=== PATIENT | female | born 1940 | race Caucasian/White ===

== ENCOUNTER → 2017-11-01 10:31 | Outpatient (CLI) | payer MEDICARE, SELFPAY ==
--- NOTE | 2017-11-01 10:41 | XR_ITS ---
EXAM: XR lumbar spine min 4V HISTORY: Low back pain ORDERING PHYSICIAN: Williams Hernandez MD PATIENT AGE: 76 years COMPARISON: None FINDINGS: There is mild/moderate anterior wedging of L1. This appears chronic however, there are no previous exams available for comparison. There is grade 2 spondylolisthesis of L5 on S1 with degenerative disc disease at that level this was present on previous CT scan of 11/20/2007 facet arthritic changes are present at L5-S1 with moderate facet hypertrophic change at L4-5 and L5-S1. IMPRESSION: 1. 40% anterior wedging of L1 which may be old but not present on an older CT scan of 11/20/2007 2. Grade 2 nonspondylolytic spondylolisthesis of L5 on S1 with degenerative disc disease and facet arthritic change
--- NOTE | 2017-11-01 10:41 | XR_ITS ---
XR hip LT 2-3V w/pelvis HISTORY: ITS.REASON: LOW BACK AND LT HIP PAIN ORDERING PHYSICIAN: Williams Hernandez MD PATIENT AGE: 76 years COMPARISON: None FINDINGS: No fracture or dislocation is evident. No significant degenerative change. No lytic or blastic change. Unremarkable soft tissues IMPRESSION: Negative hip
== END ==
PROVIDERS: PCP Family Medicine; Visit Provider Family Medicine
DX: M15.0 Primary generalized (osteo)arthritis (principal)
CPT/HCPCS: 72110; 73502

== ENCOUNTER → 2017-12-20 10:03 | Outpatient (CLI) | payer MEDICARE, SELFPAY ==
[2017-12-20 10:33] LABS: Basophils # 0.1 K/mm3 (0-0.2); Basophils % 0.7 % (0.1-2.0); Eosinophils # 0.1 K/mm3 (0.0-0.4); Eosinophils % 1.7 % (0.1-12.0); Hematocrit 47.2 % (37.0-47.0); Hemoglobin 15.6 g/dL (12.2-16.2); Lymphocytes # 2.4 K/mm3 (0.7-4.5); Lymphocytes % 29.1 K/mm3 (10-50); Mean Corpuscular HGB Conc 33.1 g/dL (31.8-35.4); Mean Corpuscular Hemoglobin 31.4 pg (27.0-31.2); Mean Corpuscular Volume 94.9 fl (81-99); Mean Platelet Volume 7.4 fl (7.4-10.4); Monocytes # 0.5 K/mm3 (0.1-1.0); Monocytes % 5.9 % (1.7-9.3); Neutrophils # 5.1 K/mm3 (1.8-7.8); Neutrophils % 62.6 % (37.0-80.0); Platelet Count 333 K/mm3 (142-424); Red Blood Count 4.98 M/mm3 (4.20-5.40); Red Cell Distribution Width 12.9 % (11.5-17.5); White Blood Count 8.2 K/mm3 (4.8-10.8)
[2017-12-20 11:08] LABS: Alanine Aminotransferase 24 U/L (12-78); Albumin Level 3.9 gm/dL (3.4-5.0); Albumin/Globulin Ratio 1.1 (1.1-1.8); Alkaline Phosphatase 88 U/L (46-116); Anion Gap 14.4 mEq/L (5-15); Aspartate Amino Transferase 18 U/L (15-37); Bilirubin,Total 0.4 mg/dL (0.2-1.0); Blood Urea Nitrogen 14 mg/dL (7-18); Calcium 9.4 mg/dL (8.5-10.1); Carbon Dioxide 29 mmol/L (21.0-32.0); Chloride 103 mmol/L (98-107); Chol/HDL Ratio 2.9 (1-3.5); Cholesterol 164 mg/dL (140-200); Estimated Glomerular Filt Rate 97 ml/min (>60); GFR (African American) 117 ML/MIN (>60); Globulin 3.5 gm/dl (1.3-3.2); Glucose 94 mg/dL (74-106); HDL Cholesterol 56 mg/dL (29-89); Iron 125 ug/dl (28-170); LDL Cholesterol 86 mg/dL (0-130); Potassium 4.4 mmoL/L (3.5-5.1); Sodium 142 mmol/L (136-145); T4 (Thyroxine) 12.4 ug/dl (4.7-13.3); Thyroid Stimulating Hormone 0.31 uIU/ml (0.358-3.740); Total Protein,Serum 7.4 gm/dL (6.4-8.2); Triglycerides 109 mg/dL (30-200); VLDL Cholesterol 22 mg/dL (0-40)
== END ==
PROVIDERS: Visit Provider Family Medicine
DX: D64.9 Anemia, unspecified (principal); E03.9 Hypothyroidism, unspecified; E78.5 Hyperlipidemia, unspecified
CPT/HCPCS: 36415; 80053; 80061; 83540; 84436; 84443; 85025

== ENCOUNTER → 2018-04-26 09:39 | Outpatient (CLI) | payer MEDICARE, SELFPAY ==
--- NOTE | 2018-04-26 09:47 | US_ITS ---
US soft tissue head and neck CLINICAL INDICATION: ITS.REASON: LT SIDED NECK MASS ORDERING PHYSICIAN: Samantha Lopez MD PATIENT AGE: 77 years Comparison: None FINDINGS: Patient reports a left-sided neck mass. The parotid and submandibular glands have an unremarkable appearance. Left carotid artery corresponds to the palpable abnormality. Patient has a prior thyroidectomy. IMPRESSION: Palpable abnormality corresponds to left carotid artery
== END ==
PROVIDERS: Family Provider Family Medicine; PCP Family Medicine; Visit Provider Family Medicine
DX: R22.1 Localized swelling, mass and lump, neck (principal)
CPT/HCPCS: 76536

== ENCOUNTER → 2018-05-09 13:52 | Outpatient (CLI) | payer MEDICARE, SELFPAY ==
--- NOTE | 2018-05-09 14:20 | CI_ITS ---
Cerebrovascular Exam Indications: Follow-up carotid 433.10. Left neck mass. IMPRESSIONS 1. The bilateral vertebral arteries are patent with normal antegrade flow. 2. Study suggests 20-49% stenosis involving the right internal carotid artery and the left internal carotid artery. No change from the study of 25-Jun-2016. 3. Left neck mass appears to be prominent L Internal Jugular vein and carotid artery. Carotid duplex study. Complete study and Doppler flow study including spectral analysis, color and eugene scale imaging. Height: Height: 137.2cm. Height: 54in. Weight: Weight: 59kg. Weight: 129.7lb. Body mass index: BMI: 31.3kg/m^2. Body surface area: BSA: 1.53m^2. Location: Vascular laboratory. Patient status: Outpatient. Tables: Arterial flow: + +--------+--------+ Location V sys V ed + +--------+--------+ Right CCA - proximal 90.5cm/s 19.6cm/s + +--------+--------+ Right CCA - distal 88cm/s 19.6cm/s + +--------+--------+ Right ECA 88.6cm/s -------- + +--------+--------+ Right ICA - proximal 51.3cm/s 18.2cm/s + +--------+--------+ Right ICA - mid 86.4cm/s 28.8cm/s + +--------+--------+ Right ICA - distal 98.2cm/s 27.5cm/s + +--------+--------+ Right vertebral 31.9cm/s -------- + +--------+--------+ Left CCA - proximal 79.6cm/s 18.2cm/s + +--------+--------+ Left CCA - distal 91.8cm/s 21.1cm/s + +--------+--------+ Left ECA 111cm/s -------- + +--------+--------+ Left ICA - proximal 74.2cm/s 22cm/s + +--------+--------+ Left ICA - mid 91.1cm/s 24.5cm/s + +--------+--------+ Left ICA - distal 84.7cm/s 29.1cm/s + +--------+--------+ Left vertebral 54.5cm/s -------- + +--------+--------+ Velocity ratios: + + + + + + Right, V sys Right, V ed Left, V sys Left, V ed + + + + + + Max ICA/dist CCA 1.12 1.47 0.99 1.38 + + + + + + (Report amended ) Electronically signed by: Aniceto Lemos [id number]
== END ==
PROVIDERS: PCP Physician Assistant; Visit Provider Physician Assistant
DX: I65.23 Occlusion and stenosis of bilateral carotid arteries (principal)
CPT/HCPCS: 93880

== ENCOUNTER → 2018-08-25 13:52 | Outpatient (CLI) | payer MEDICARE, SELFPAY ==
--- NOTE | 2018-08-25 13:58 | XR_ITS ---
XR chest 2V HISTORY: Cough ITS.REASON: BRONCHTITS ORDERING PHYSICIAN: RADAMES Tracy PATIENT AGE: 77 years COMPARISON: PA and lateral chest 11/21/2007 FINDINGS: The lung miner are well expanded. There is ill-defined pneumonic infiltrate in the anterior segment left upper lobe and there is minimal lingular pneumonic infiltrate present as well. The right lung miner well expanded and clear. Cardiac size is normal and the vascularity is normal. There is a moderately large hiatal hernia noted chest show definite increase in size when compared to the previous chest film 2007. IMPRESSION: Left upper lobe and lingular bronchopneumonia, difficult to definitely exclude pneumonic infiltrate in the right lower lobe due to the rather large hiatal hernia partially obscuring adequate visualization of the right lower lobe.
== END ==
PROVIDERS: PCP Physician Assistant; Visit Provider Physician Assistant
DX: J40 Bronchitis, not specified as acute or chronic (principal)
CPT/HCPCS: 71046

== ENCOUNTER → 2018-09-27 17:40 | Outpatient (CLI) | payer MEDICARE, SELFPAY | PROVIDERS: Visit Provider Obstetrics & Gynecology | DX: N39.0 Urinary tract infection, site not specified (principal) | CPT/HCPCS: 87086; 87088; 87186 ==

== ENCOUNTER → 2018-10-16 14:47 | Outpatient (POV) | payer MEDICARE, SELFPAY | PROVIDERS: Visit Provider Specialist | DX: M79.672 Pain in left foot (principal); M79.671 Pain in right foot | CPT/HCPCS: 95886; 95909 ==

== ENCOUNTER → 2019-01-19 15:48 | Outpatient (CLI) | payer MEDICARE, SELFPAY ==
--- NOTE | 2019-01-19 15:50 | MR_ITS ---
MR lumbar spine wo con HISTORY: PT states low back pain, bilateral leg pain and numbness . ITS.REASON: LOW BACK PAIN ASSOCIATED WITH RADICULOPATHY ORDERING PHYSICIAN: RADAMES Tracy PATIENT AGE: 78 years Comparison: X-RAY 11/01/17. TECHNIQUE: Standard multiplanar multiecho sequences are performed without contrast. 3-D MIP and myelographic images are also rendered and reviewed FINDINGS: The spinal cord ends at the L1-L2 level. There is kyphosis of the thoracic lumbar junction. T11-T12: Degenerative disc disease. T12-L1: Degenerative disc disease with kyphosis and chronic mild wedging of L1 with loss of height anteriorly of 40% L1-L2: Mild concentric bulging disc with minimal foraminal disc protrusion and mild left foraminal narrowing. L2-L3: Unremarkable. L3-L4: Unremarkable. L4-5: Mild concentric bulging disc. There is moderate facet and ligamentum flavum hypertrophy with severe bilateral lateral recess and foraminal narrowing left greater than right with canal stenosis.. There is minimal central disc protrusion L5-S1: There is grade 1-2 spondylolisthesis of L5 on S1 with anterolisthesis of 8 mm with prominent facet hypertrophic changes and severe bilateral foraminal narrowing left greater than right No extruded herniated disc is evident. IMPRESSION: 1. Multilevel lumbar and lower thoracic spondylosis with chronic wedging of L1 and kyphosis of the thoracolumbar junction. The see above for description at each level 2. L4-5: Mild concentric bulging disc. There is moderate facet and ligamentum flavum hypertrophy with severe bilateral lateral recess and foraminal narrowing left greater than right with canal stenosis.. There is minimal central disc protrusion 3. L5-S1: There is grade 1-2 spondylolisthesis of L5 on S1 with anterolisthesis of 8 mm with prominent facet hypertrophic changes and severe bilateral foraminal narrowing left greater than right
== END ==
PROVIDERS: PCP Physician Assistant; Visit Provider Physician Assistant
DX: M54.5 Low back pain (principal)
CPT/HCPCS: 72148; 76376

== ENCOUNTER → 2019-01-23 10:10 | Outpatient (POV) | payer MEDICARE, SELFPAY | PROVIDERS: Visit Provider Dermatology | DX: Z00.00 Encounter for general adult medical examination without abnormal findings (principal) ==

== ENCOUNTER → 2019-02-12 09:28 | Outpatient (POV) | payer MEDICARE, SELFPAY ==
[2019-02-12 09:42] VITALS: BP 139/66; PULSE 91; RESP 18; O2SAT 98; BMI 23.9
--- NOTE | 2019-02-12 13:29 | HMH.PMCON ---
Assessment and Plan (1) Spinal stenosis of lumbar region Current visit: Yes Status: Chronic Category: Medical Code(s): M48.061 - Spinal stenosis, lumbar region without neurogenic claudication (2) Spondylosis Current visit: Yes Status: Chronic Category: Medical Code(s): M47.9 - Spondylosis, unspecified - Assessment and plan all Dx Assessment and Plan for all problems:: The patient is not interested in any injection therapy at this time. She is also not currently interested in any antiinflammatories. She would like to home Physical therapy. She does not drive, is hard of hearing, as well as has difficulty seeing. She feels it would be safer to have physical therapy rather than injections, as she does not think she would have transportation. She is been instructed to follow-up in the office in therapy to see if she is feeling better or if she would like to consider injection therapy. She is been instructed to call the office if she has any concerns prior to her next appointment. Dr. Arrington has reviewed this note and agrees with this plan of care. This note was dictated using voice recognition software and may contain errors or omissions HPI - Data of Consult Patient: new to practice Consult date: 02/12/19 Requesting Physician: Niurka Gutierrez APRN Primary Care Provider: RADAMES Tracy - Consult Narrative Reason for consult: Pain, leg pain History of present illness: Ms. Del Castillo is a 78 year old female referred to us today by her pcp. Patient complains of low back pain radiating to bilateral legs. She rates her pain as 6 out of 10. She says that the pain is worse with standing and with movement. Patient also says that sitting does not really relieve the pain, but lying on her stomach does help with her pain. She says that she has tried the use of heat and ice, as well as a home stretching program. She says that her sisters have done injections in the past, but she is not interested in this modality at this time. She also says she has tried tylenol, but unable does not want to try antiinflammatories at this time. CC: Niurka Gutierrez APRN [facility] History Medical History: Reports:: Asthma, Hyperlipidemia, Hypertension *Have you ever received a pneumonia vaccine?: No *Have you received a flu vaccine this season?: No Other Medical History: Reports: Hypothyroidism Other Surgeries: Yes: Hysterectomy-Total Amputation: No Fractures: No - *Social History Smoking Status: Current every day smoker Tobacco Type: cigarettes # Packs/Day (cigarettes): 1 Alcohol Intake: never Substance Use Type: denies use *Occupational Status:: retired Housing: house *Travel in the last 8 weeks: None - Psychiatric History Expresses thoughts of harming self/others: None Suicide Plan Description: No Plan Family Hx:: Cancer, Diabetes Review of Systems - Allergic/Immunologic Comments: ROS General: no recent weight change, no fever, no sleep disturbances Respiratory: no cough, no shortness of air, no recurring pulmonary infections Cardiovascular/Peripheral Vascular: No chest pain, No palpitations, no edema, no shortness of breath. Gastrointestinal: no incontinence, normal bowel movements reported Genitourinary: no incontinence Musculoskeletal: Back pain Psychiatric: normal mood/ affect, [denies depression], [denies anxiety] Neurological: [denies weakness in extremities], [denies balance issues] Meds Home Medications Medication Instructions Recorded Confirmed Type atorvastatin 40 mg tablet 40 mg PO 90 Days tab 08/10/18 09/27/18 History budesonide-formoterol HFA 160 INHALATION 30 Days #102 g 08/10/18 09/27/18 History mcg-4.5 mcg/actuation aerosol inhaler ferrous gluconate 324 mg (38 mg 324 mg PO 90 Days #90 tab 08/10/18 09/27/18 History iron) tablet hydrochlorothiazide 12.5 mg tablet 12.5 mg PO 90 Days tab 08/10/18 09/27/18 History levothyroxine 75 mcg tablet 75 mcg PO DAILY 30 Days #30
--- NOTE | 2019-02-12 13:48 | P.CONS_ITS ---
Assessment and Plan (1) Spinal stenosis of lumbar region Current visit: Yes Status: Chronic Category: Medical Code(s): M48.061 - Spinal stenosis, lumbar region without neurogenic claudication (2) Spondylosis Current visit: Yes Status: Chronic Category: Medical Code(s): M47.9 - Spondylosis, unspecified - Assessment and plan all Dx Assessment and Plan for all problems:: The patient is not interested in any injection therapy at this time. She is also not currently interested in any antiinflammatories. She would like to home Physical therapy. She does not drive, is hard of hearing, as well as has difficulty seeing. She feels it would be safer to have physical therapy rather than injections, as she does not think she would have transportation. She is been instructed to follow-up in the office in therapy to see if she is feeling better or if she would like to consider injection therapy. She is been instructed to call the office if she has any concerns prior to her next appointment. Dr. Arrington has reviewed this note and agrees with this plan of care. This note was dictated using voice recognition software and may contain errors or omissions HPI - Data of Consult Patient: new to practice Consult date: 02/12/19 Requesting Physician: Niurka Gutierrez APRN Primary Care Provider: RADAMES Tracy - Consult Narrative Reason for consult: Pain, leg pain History of present illness: Ms. Del Castillo is a 78 year old female referred to us today by her pcp. Patient complains of low back pain radiating to bilateral legs. She rates her pain as 6 out of 10. She says that the pain is worse with standing and with movement. Patient also says that sitting does not really relieve the pain, but lying on her stomach does help with her pain. She says that she has tried the use of heat and ice, as well as a home stretching program. She says that her sisters have done injections in the past, but she is not interested in this modality at this time. She also says she has tried tylenol, but unable does not want to try antiinflammatories at this time. CC: Niurka Gutierrez APRN [facility] History Medical History: Reports:: Asthma, Hyperlipidemia, Hypertension *Have you ever received a pneumonia vaccine?: No *Have you received a flu vaccine this season?: No Other Medical History: Reports: Hypothyroidism Other Surgeries: Yes: Hysterectomy-Total Amputation: No Fractures: No - *Social History Smoking Status: Current every day smoker Tobacco Type: cigarettes # Packs/Day (cigarettes): 1 Alcohol Intake: never Substance Use Type: denies use *Occupational Status:: retired Housing: house *Travel in the last 8 weeks: None - Psychiatric History Expresses thoughts of harming self/others: None Suicide Plan Description: No Plan Family Hx:: Cancer, Diabetes Review of Systems - Allergic/Immunologic Comments: ROS General: no recent weight change, no fever, no sleep disturbances Respiratory: no cough, no shortness of air, no recurring pulmonary infections Cardiovascular/Peripheral Vascular: No chest pain, No palpitations, no edema, no shortness of breath. Gastrointestinal: no incontinence, normal bowel movements reported Genitourinary: no incontinence Musculoskeletal: Back pain Psychiatric: normal mood/ affect, [denies depression], [denies anxiety] Neurological: [denies weakness in extremities], [denies balance issues] Meds Home Medications Medication Instructions Recorded Confirme
== END ==
PROVIDERS: PCP Physician Assistant; Visit Provider Clinical Nurse Specialist Family Health
DX: M48.061 Spinal stenosis, lumbar region without neurogenic claudication (principal); M47.9 Spondylosis, unspecified
CPT/HCPCS: 99202

== ENCOUNTER → 2019-03-12 10:12 | Outpatient (POV) | payer MEDICARE, SELFPAY ==
[2019-03-12 10:26] VITALS: BP 148/63; PULSE 78; RESP 18; O2SAT 98; BMI 23.9
--- NOTE | 2019-03-12 10:37 | P.CONS_ITS ---
[facility] Pain Management SOAP Note Subjective:: Patient is a pleasant 78-year-old white female who presents today for follow-up. Patient is being treated for low back pain radiating to bilateral legs. Patient rates her pain a 3 out of 10 today. She was not interested in any type of injective therapy at her last visit, and was referred for some physical therapy. The patient says that she is doing well with therapy and feels like this is been 80% effective for her. Patient also says she has not had to take any type of anti-inflammatories since starting physical therapy. Patient does say that her pain does increase if she stands for long periods of time, but says the pain is tolerable as long as she takes rest periods . Review of Systems General: No recent weight changes, no fever, no sleep disturbances Respiratory: No cough, no shortness of air, no recurring pulmonary infections Cardiovascular/peripheral vascular: No chest pain, no palpitations, no edema, no shortness of breath Gastrointestinal: No new onset incontinence, normal bowel movements reported Genitourinary: No new onset incontinence Musculoskeletal: Back pain, leg pain Psychiatric: Normal mood/affect Neurological: [Denies weakness in extremities], [denies balance issues] Objective:: Physical exam General: Alert and oriented x3, no acute distress, pleasant and cooperative, [on room air] Lungs: Respirations even and unlabored, symmetrical chest expansion Eyes: PERRL Musculoskeletal: Flexion and extension of lumbar spine somewhat guarded secondary to pain, deep tendon reflexes normal, strength in upper and lower extremities [5/5], normal gait noted Neurological: Speech clear, people manager equal, no gross sensory deficit Assessment:: Degenerative disc disease lumbar spine with lumbar radiculopathy Plan:: Patient will continue with physical therapy at this time. We will follow-up with her in 1 month to reassess her symptoms at that time. She is been instructed to call the office if she has any concerns prior to her next appointment. Dr. Arrington has reviewed this note and agrees with this plan of care. This note was dictated using voice recognition software and make contain errors or omissions.
== END ==
PROVIDERS: PCP Family Medicine; Visit Provider Clinical Nurse Specialist Family Health
DX: M51.16 Intervertebral disc disorders with radiculopathy, lumbar region (principal)
CPT/HCPCS: 99212

== ENCOUNTER → 2019-04-09 13:10 | Outpatient (POV) | payer MEDICARE, SELFPAY ==
[2019-04-09 13:33] VITALS: BP 133/54; PULSE 76; RESP 18; O2SAT 98; BMI 23.1
--- NOTE | 2019-04-09 13:58 | HMH.PAINSOAP ---
[facility] Pain Management SOAP Note Subjective:: Patient is a pleasant 78-year-old white female who presents today for follow-up. Patient was not interested in injective therapy previously she wanted to continue with her physical therapy. And though physical therapy has helped she states her pain is still quite significant when she standing and walking. The pain is relieved when she sits down and leans forward. She does have ligamentum flavum hypertrophy noted on her MRI. We discussed a injection and potentially a mild procedure. She rates her pain a 3 out of 10 now when she is sitting and comfortable. ROS General: no recent weight change, no fever, no sleep disturbances Respiratory: no cough, no shortness of air, no recurring pulmonary infections Cardiovascular/Peripheral Vascular: No chest pain, No palpitations, no edema, no shortness of breath. Gastrointestinal: no incontinence, normal bowel movements reported Genitourinary: no incontinence Musculoskeletal: Back pain, leg pain while walking Psychiatric: normal mood/ affect Neurological: Weakness in bilateral lower extremities while walking, [denies balance issues] Objective:: Physical Exam General: Alert and oriented x3, no acute distress, pleasant and cooperative, [on room air] Lungs: Resps E/U, Symmetrical chest expansion, Eyes: PERRL Musculoskeletal: Flexion and extension of lumbar spine somewhat guarded secondary to pain, deep tendon reflexes normal, strength in upper and lower extremities [5/5], antalgic gait noted Neurological: speech clear, supervisor reclamation equal, no gross sensory deficits Assessment:: Degenerative disc disease lumbar spine with lumbar radiculopathy and spinal stenosis with neurogenic claudication. Plan:: We will start with an L4-L5 lumbar epidural steroid injection. We will get an epidurogram during this to help determine if she is a mild candidate. I gave her information in regards to this. I will follow-up with the patient after her injection reassess her symptoms at that time patient's been instructed to call the office if she has any issues prior to her next appointment. She is not on any anticoagulation therapy. She is currently continuing a home stretching program. Dr. Arrington has reviewed this note and agrees with this plan of care. This note was dictated using voice recognition software and may contain errors or omissions Pain Management Hx Components *Have you ever received a pneumonia vaccine?: Yes *Have you received a flu vaccine this season?: Yes - *Social History *Occupational Status:: other *Travel in the last 8 weeks: None
== END ==
PROVIDERS: PCP Family Medicine; Visit Provider Clinical Nurse Specialist Family Health
DX: M51.16 Intervertebral disc disorders with radiculopathy, lumbar region (principal); M48.062 Spinal stenosis, lumbar region with neurogenic claudication
CPT/HCPCS: 99212

== ENCOUNTER → 2020-09-07 08:49 | Outpatient (CLI) | payer MEDICARE, SELFPAY ==
[2020-09-07 10:07] LABS: Alanine Aminotransferase 16 U/L (12-78); Albumin Level 4.4 g/dl (3.5-5.0); Albumin/Globulin Ratio 1.3 (1.1-1.8); Alkaline Phosphatase 82 U/L (38-126); Anion Gap 11.2 mEq/L (5-15); Aspartate Amino Transferase 30 U/L (14-36); Bilirubin,Total 0.6 mg/dl (0.2-1.3); Blood Urea Nitrogen 16 mg/dl (7-17); Calcium 9.7 mg/dl (8.4-10.2); Carbon Dioxide 29 mmol/L (22.0-30.0); Chloride 100 mmol/L (98-107); Estimated Glomerular Filt Rate 81 ml/min (>60); GFR (African American) 98 ML/MIN (>60); Globulin 3.3 g/dL (1.3-3.2); Glucose 100 mg/dl (74-100); Potassium 4.2 mmoL/L (3.5-5.1); Sodium 136 mmol/L (136-145); Total Protein,Serum 7.7 g/dl (6.3-8.2)
== END ==
PROVIDERS: PCP Physician Assistant; Visit Provider Physician Assistant
DX: R73.09 Other abnormal glucose (principal)
CPT/HCPCS: 36415; 80053

== ENCOUNTER → 2021-02-25 12:13 | Outpatient (CLI) | payer MEDICARE, SELFPAY ==
--- NOTE | 2021-02-25 12:24 | XR_ITS ---
PROCEDURE: XR SHOULDER LT MIN 2V CLINICAL INDICATION: LT SHOULDER INJURY Pain COMPARISON: CR XR HUMERUS LT from 02/25/2021 FINDINGS: There are mild osteoarthritic changes at the glenohumeral joint with subacromial stenosis and high-riding humeral head which may indicate rotator cuff tear. Subchondral cystic changes is present at the junction of the greater tuberosity with the humeral head. Nonspecific calcifications are present in the axillary region and subcoracoid area. These could be related to loose bodies No acute fracture or dislocation is evident of the humerus. The mid distal aspect of the humerus has an unremarkable appearance. IMPRESSION: Osteoarthritic change of the glenohumeral joint with subacromial stenosis which may indicate a rotator cuff tear with subchondral cystic changes of the junction of the humeral head and greater tuberosity. Possible loose bodies Dictated by: Aniceto Lemos MD 02/25/2021 14:01 Aniceto Lemos MD in [place] 02/25/2021 14:01
== END ==
PROVIDERS: PCP Physician Assistant; Visit Provider Physician Assistant
DX: S49.92XA Unspecified injury of left shoulder and upper arm, initial encounter (principal)
CPT/HCPCS: 73030; 73060

== ENCOUNTER → 2021-03-09 08:37 | Outpatient (CLI) | payer MEDICARE, SELFPAY ==
--- NOTE | 2021-03-09 08:41 | XR_ITS ---
PROCEDURE: XR DEXA AXIAL SKELETON CLINICAL HISTORY: POST-MENOPAUSAL COMPARISON: No exams were available for comparison FINDINGS: The right hip BMD is 0.699 with a T-score of -2.0. The left hip BMD is 0.713 with a T-score of -1.9. The lumbar spine BMD is 0.885 with a T-score of -1.5. IMPRESSION: This patient is considered osteopenic according to the World Health Organization criteria. Bone density is between 10 and 25 percent below young normal. Fracture risk is moderate. Treatment is advised. Based on these results a follow-up exam is recommended in 2 year. Dictated by: Aniceto Lemos MD 03/10/2021 19:15 Aniceto Lemos MD in [facility] 03/11/2021 08:28
== END ==
PROVIDERS: PCP Physician Assistant; Visit Provider Physician Assistant
DX: Z78.0 Asymptomatic menopausal state (principal)
CPT/HCPCS: 77080

== ENCOUNTER → 2021-10-09 11:15 | Outpatient (CLI) | payer MEDICARE, SELFPAY ==
--- NOTE | 2021-10-09 11:22 | XR_ITS ---
FINAL REPORT CLINICAL HISTORY: . covid testing, cough FINDINGS: The heart size is normal. There is a moderate hiatal hernia. There is mild scarring. There are no pleural effusions. There is no pneumothorax. There are probable loose bodies adjacent to the proximal left humerus. IMPRESSION: No acute cardiopulmonary process Reviewed, Interpreted and Dictated by Viral Hickey III, MD Transcribed by Rafita Ramirez Authenticated by Viral Hickey III, MD on 10/09/2021 12:47:47 PM [facility]
[2021-10-09 11:49] LABS: Adenovirus,PCR Not Detected (NotDetected); Bordetella Pertussis Not Detected (NotDetected); Chlamydophila Pneumoniae, PCR Not Detected (NotDetected); Coronavirus 19, PCR Not Detected (NotDetected); Coronavirus 229E Not Detected (NotDetected); Coronavirus NL63 Not Detected (NotDetected); Coronavirus OC43 Not Detected (NotDetected); Coronovirus HKU1,PCR Not Detected (NotDetected); Human Metapneumovirus Not Detected (NotDetected); Influenza A, PCR Not Detected (NotDetected); Influenza AH1, 2009 Not Detected (NotDetected); Influenza AH1, PCR Not Detected (NotDetected); Influenza AH3,PCR Not Detected (NotDetected); Influenza B, PCR Not Detected (NotDetected); Mycoplasma Pneumoniae, PCR Not Detected (NotDetected); Parainfluenza 1, PCR Not Detected (NotDetected); Parainfluenza 2, PCR Not Detected (NotDetected); Parainfluenza 3, PCR Not Detected (NotDetected); Parainfluenza 4, PCR Not Detected (NotDetected); Respiratory Syncytial Virus Not Detected (NotDetected); Rhinovirus/Enterovirus Not Detected (NotDetected)
[2021-10-09 12:11] LABS: Basophils # 0.1 K/mm3 (0-0.2); Basophils % 0.6 % (0.1-2.0); Eosinophils # 0.1 K/mm3 (0.0-0.4); Eosinophils % 1.3 % (0.1-12.0); Hematocrit 43.6 % (37.0-47.0); Hemoglobin 14.2 g/dL (12.2-16.2); Lymphocytes # 2.5 K/mm3 (0.7-4.5); Lymphocytes % 25.8 % (10-50); Mean Corpuscular HGB Conc 32.5 g/dL (31.8-35.4); Mean Corpuscular Hemoglobin 31.7 pg (27.0-31.2); Mean Corpuscular Volume 97.5 fl (81-99); Mean Platelet Volume 7.9 fl (7.4-10.4); Monocytes # 0.6 K/mm3 (0.1-1.0); Monocytes % 6.7 % (1.7-9.3); Neutrophils # 6.3 K/mm3 (1.8-7.8); Neutrophils % 65.6 % (37.0-80.0); Platelet Count 336 K/mm3 (142-424); Red Blood Count 4.47 M/mm3 (4.20-5.40); Red Cell Distribution Width 13.5 % (11.5-17.5); White Blood Count 9.6 K/mm3 (4.8-10.8)
== END ==
PROVIDERS: PCP Physician Assistant; Visit Provider Physician Assistant
DX: Z20.822 Contact with and (suspected) exposure to COVID-19 (principal)
CPT/HCPCS: 36415; 71045; 85025; 87581; 87632; 87798; C9803; U0003; U0005

== ENCOUNTER 2025-02-08 11:18 | Outpatient (CLI) | payer MEDICARE, SELFPAY ==
--- OUTSIDE RECORDS SUMMARY | 2024-09-13 05:15 | XMS_ITS ---
Author Organization [facility] Address [address] [place] [id number] Care Team Providers Care Contractor Broomcorn Threshing Name Role Phone Ector Chester Primary Care Provider [phone] Marsha Hernandez Unavailable [phone] Toya Johnson Unavailable [phone] Allergies Allergen (clinical drug ingredient) Drug/Non Drug Allergy documented on EMR Reaction Allergy Type Onset Date Status Substance with penicillin structure and antibacterial mechanism of action (substance) Penicillins Unknown Drug Allergy Active Results Component Value Reference Range Notes CBC Venipuncture (in house) Reviewed date:09/14/2024 12:50:20 PM Interpretation: Performing Lab: Notes/Report: wbc 13.8 3.5 - 10 lymph 15.3 15 - 50 mid 5.2 2 - 15 gran 79.5 35 - 80 rbc 5.13 3.5 - 5.5 hgb 15.5 11.5 - 16.5 hct 46.4 35 - 55 mcv 90.4 75 - 100 mch 30.2 25 - 35 mchc 33.4 31 - 38 platlet 387 100 - 400 Glycohemoglobin A1c (in hous e) Reviewed date:09/14/2024 12:50:20 PM Interpretation:5.9% Performing Lab: Notes/Report: 5.9% glycohemoglobin 5.9% 5 - 6.5 % P-Comprehensive Metabolic Pa lito (CMP) Reviewed date:09/14/2024 12:50:20 PM Interpretation:K+ 5.4, Cl 96, creat 0.48 Performing Lab: Notes/Report: Test performed by [facility] [address] [place] [address] , [place] [address] Apolinar Calvillo MD, Quality Controller CLIA: [id number] Sodium 135 135-145 mmol/L Potassium 5.4 3.5-5.3 mmol/L Chloride 96 97-108 mmol/L CO2 27 22-32 mmol/L Glucose 86 65-99 mg/dL BUN 11 8-23 mg/dL Creatinine 0.48 0.50-1.00 mg/dL Calcium 9.7 8.6-10.4 mg/dL eGFR by Creatinine 93 >59 mL/min/1.73m2 Protein 7.4 6.0-8.3 g/dL Albumin 4.4 3.5-5.3 g/dL Alkaline Phosphatase 105 35-121 IU/L ALT (SGPT) 10 <5-47 IU/L AST (SGOT) 16 <5-40 IU/L Bilirubin, Total 0.3 <0.2-1.2 mg/dL A/G Ratio 1.5 1.1-2.5 P-Ferritin Reviewed date:09/14/2024 12:50:20 PM Interpretation:Normal Performing Lab: Notes/Report: Test performed by [facility] [address] [place] [address] , [place] [address] Apolinar Calvillo MD, Quality Controller CLIA: [id number] Ferritin 48.0 13.0-301.0 ng/mL P-T4 Free (thyroxine) Reviewed date:09/14/2024 12:50:20 PM Interpretation:Normal Performing Lab: Notes/Report: Test performed by [facility] [address] [place] [address] , [facility] [place] [place] [address] Apolinar Calvillo MD, Quality Controller CLIA: [id number] Thyroxine Free (free T4) 1.29 0.86-1.76 ng/dL P-Iron Reviewed date:09/14/2024 12:50:20 PM Interpretation:Normal Performing Lab: Notes/Report: Test performed by [facility] [address] [place] [address] , [place] [address] Apolinar Calvillo MD, Quality Controller CLIA: [id number] Iron 82 37-145 ug/dL P-Lipid Panel Reviewed date:09/14/2024 12:50:20 PM Interpretation:trig 150, non-hdl 144 Performing Lab: Notes/Report: Test performed by [facility] [address] [facility] , [address], [place] [address] Apolinar Calvillo MD, Quality Controller CLIA: [id number] Cholesterol 193 <200 mg/dL Triglycerides 150 <150 mg/dL HDL Cholesterol 49 >39 mg/dL Cholesterol / HDL Ratio 3.94 0.00-4.44 Ratio Non-HDL Cholesterol 144 <130 mg/dL LDL Cholesterol (Calculation) 114 <130 mg/dL LDL Cholesterol Levels* Less than 100 mg/dL Optimal 100 to 129 mg/dL Near Optimal/ Above Optimal 130 to 159 mg/dL Borderline High 160 to 189 mg/dL High 190 mg/dL and above Very High * Categories as recommended by the 2004 ATPIII guidelines LDL/HDL Ratio 2.3 <3.3 Ratio LDL Cholesterol Patient History Test Date: 08/03/2023 LDL Results: 96 Units: mg/dL % Change: +10% Test Date: 01/20/2024 LDL Results: 88 Units: mg/dL % Change: -8% Test Date: 09/13/2024 LDL Results: 114 Units: mg/dL % Change: +29% P-TSH Reviewed date:09/14/2024 12:50:20 PM Interpretation:Normal Performing Lab: Notes/Report: Test performed by [facility], [address] , [address], [place] [address] Apolinar Calvillo MD, Quality Controller CLIA: [id number] TSH 0.79 0.43-5.25 mU/L REASON FOR VISIT check up with blood work and Annual Wellness Visit, Needs bone density screening & flu vaccine Medications Medication SIG (Take, Route, Frequency, Duration) Notes Start Date End Date Status Symbicort 160-4.5 MCG/ACT INHALE 2 PUFFS BY MOUTH TWICE DAILY for 90 Active Lipitor 40 MG 1 tab(s) orally once a day for 90 days Active Omeprazole 40 MG TAKE 1 CAPSULE BY MOUTH EVERY DAY for 90 days Active Albuterol Sulfate HFA 108 (90 Base) MCG/ACT 1 puff as needed Inhalation every 4 hrs, prn 07/08/2023 Active Montelukast Sodium 10 MG 1 tab(s) orally once a day for 90 days Active Meloxicam 7.5 MG 1 tablet Orally Once a day for 90 days 09/13/2024 Active Levothyroxine Sodium 75 MCG 1 tab(s) orally once a day for 90 days Active Benzonatate 200 MG 1 capsule Orally Three times a day, prn 07/08/2023 Active ProAir Digihaler 108 (90 Base) MCG/ACT 1-2 puff(s) inhaled 4 times a day as needed Active Cyclobenzaprine HCl 5 MG 1 tablet Orally three times a day as needed 09/21/2023 Active Primidone 50 MG 1/2 tab orally qhs for 90 days Active WALKER WITH WHEELS AND SEAT DIRECTED NEEDED R26.89R53.81 *Please review for potential replacement for e-prescription and drug interaction check* 06/03/2022 Active Flonase Allergy Relief 50 MCG/ACT 1 spray(s) in each nostril once a day for 30 day(s) 08/12/2022 Active Immunizations Vaccine Route Administration Date Status Comme nts Prevnar (PCV20) IM Intramuscular 09/13/2024 Administered Vital Signs Blood pressure systolic 136 mm Hg 09/13/19 25 Blood pressure diastolic 70 mm Hg 025 Height 63 in 09/13/2024 Weight 126.0 lbs 09/13/2024 BMI 22.32 kg/m2 09/13/2024 Encounters Encounter Location Date Provider Diagnosis [facility] [address] [id number] 09/13/2024 Toya Johnson Adult general medica l examination Z00.00 ; Acquired hypothyroidism E03.9 ; Essential hypertension I10 ; Mixed hyperlipidemia E78.2 ; Chronic obstructive pulmonary disease, unspecified COPD type J44.9 ; Iron deficiency E61.1 ; Environmental allergies Z91.09 ; Impaired fasting glucose R73.01 ; Benign essential tremor G25.0 ; Polyarthralgia M25.50 ; Current smoker F17.200 ; Osteopenia M85.80 and BMI 22.0-22.9, adult Z68.22 Assessments Encounter Date Diagnosis (ICD Code) Assessment Notes Treatment Notes Treatment Clinical Notes Section Notes 09/13/2024 Adult general medical examination (ICD-10 - Z00.00) Patient instructed to return to office Annually for Annual Wellness Visits to include annual screenings of Pain assessment, Functional Ability assessment, Cognitive Ability assessment, Fall Risk assessment, Depression screening and Bladder control screening. 09/13/2024 Acquired hypothyroidism (ICD-10 - E03.9) 09/13/2024 Essential hypertension (ICD-10 - I10) 09/13/2024 Mixed hyperlipidemia (ICD-10 - E78.2) 09/13/2024 Chronic obstructive pulmonary disease, unspecified COPD type (ICD-10 - J44.9) 09/13/2024 Iron deficiency (ICD-10 - E61.1) 09/13/2024 Environmental allergies (ICD-10 - Z91.09) 09/13/2024 Impaired fasting glucose (ICD-10 - R73.01) 09/13/2024 Benign essential tremor (ICD-10 - G25.0) 09/13/2024 Polyarthralgia (ICD-10 - M25.50) 09/13/2024 Current smoker (ICD-10 - F17.200) 09/13/2024 Osteopenia (ICD-10 - M85.80) 09/13/2024 BMI 22.0-22.9, adult (ICD-10 - Z68.22) Plan Of Treatment Medication Medication Name Sig Start Date Stop Date Notes Symbicort 160-4.5 MCG/ACT INHALE 2 PUFFS BY MOUTH TWICE DAILY for 90 Lipitor 40 MG 1 tab(s) orally once a day for 90 days Montelukast Sodium 10 MG 1 tab(s) orally once a day for 90 days Meloxicam 7.5 MG 1 tablet Orally Once a day for 90 days 09/13/2024 Levothyroxine Sodium 75 MCG 1 tab(s) ora lly once a day for 90 days Treatment Notes Assessment Notes Adult general medical examination Patien t instructed to return to office Annually for Annual Wellness Visits to include annual screenings of Pain assessment, Functional Ability assessment, Cognitive Ability assessment, Fall Risk assessment, Depression screening and Bladder control screening. Next Appt Details Follow Up: As directed by MD , Reason: Provider Name:Toya juarez, 03/07/2025 09:00:00 AM, [address], [address], [place], [place], [id number], Progress Notes * MICHAEL DEL CASTILLODOB:1940 (84 yo F)Acc No.[id number]:09/13/2024 Annual Wellness Visit Patient: MICHAEL LONGORIA Provider: RADAMES Brito :1940 A ge:83 Y S ex:Female Date:09/13/2024 Address:[address] [place], [place] [id number] Pcp:Chester Barney Subjective: * Chief Complaints: * 1 . check up with blood work and Annual Wellness Visit. 2. Needs bone density screening & flu vaccine. * HPI: H PI: Patient is here today for P atient is here today for a Medicare Annual Wellness Visit. Pt sts she is fasting, and sts she has no new concerns or complaints at this time. * ROS: O PTHALMOLOGY: Negative for d enies vision issues. * Medical History: H ypothyroidism, Hyperlipidemia, Copd, Hyponatremia, Kidney stones, Allergic rhinitis. * Surgical History: h ysterectomy abdominal , Knee surgery . * Hospitalization/Major Diagno stic Procedure: s ee above . * Family History: F ather: 89 yrs, asthma, BPH. M other: 89 yrs, hyperlipidemia, BPH. P aternal Grand Father: alive. P aternal Grand Mother: alive. M aternal Grand Father: alive. Maternal Grand Mother: alive. S iblings: 1brother. 3 brother(s) , 5 sister(s) . 2 son(s) , 1 daughter(s) . . * Social History: C URRENT TOBACCO USE: Yes S moking Status: Patient does smoke, number of cigarettes per day: 10. C affeine: yes, frequency:daily. Exercise: no. Home smoke detector use: yes. New since last visit: none. Occupation: yes. Past smoking status: yes, Smoking status: Patient does smoke, Packs per day: 0, Number Cigarettes per day: 6. Occup. exposure: none. Recreational drug use: no. Alcohol: socially, Type: , Frequency: ,Years: , Determination:. Sexually active: no.. Travel ouside [place]: yes. * Medications: T aking Montelukast Sodium 10 MG Tablet 1 tab(s) orally once a day , Taking Primidone 50 MG Tablet 1/2 tab orally qhs , Taking WALKER WITH WHEELS AND SEAT DIRECTED NEEDED , Notes to Pharmacist: R26.89R53.81 *Please review for potential replacement for e-prescription and drug interaction check*, Taking Flonase Allergy Relief 50 MCG/ACT Suspension 1 spray(s) in each nostril once a day , Taking ProAir Digihaler 108 (90 Base) MCG/ACT Aerosol Powder Breath Activated 1-2 puff(s) inhaled 4 times a day as needed , Taking Cyclobenzaprine HCl 5 MG Tablet 1 tablet Orally three times a day as needed , Taking Levothyroxine Sodium 75 MCG Tablet 1 tab(s) orally once a day , Taking Benzonatate 200 MG Capsule 1 capsule Orally Three times a day, prn , Taking Omeprazole 40 MG Capsule Delayed Release TAKE 1 CAPSULE BY MOUTH EVERY DAY , Taking Albuterol Sulfate HFA 108 (90 Base) MCG/ACT Aerosol Solution 1 puff as needed Inhalation every 4 hrs, prn , Taking Symbicort 160-4.5 MCG/ACT Aerosol INHALE 2 PUFFS BY MOUTH TWICE DAILY , Taking Lipitor 40 MG Tablet 1 tab(s) orally once a day , Medication List reviewed and reconciled with the patient * Allergies: P enicillins. Objective: * Vitals: W t:126.0, Temp:97.7, BP:136/70, Nurse:MARIELA, Ht: 63, BMI:22.32. * Examination: G eneral Examination: General Appearance: N AD. HEENT: u nremarkable. Oral cavity: n o lesions, mucosa moist and WNL, no erythema. Neck: s upple, no lymphadenopathy. Chest: n ormal shape and expansion. Heart: R SR. Lungs: c lear to auscultation. Abdomen: bowel sounds present, soft and nontender, no organomegaly or masses, no guarding or rigidity. Neurologic Exam: I ntact, in a wheelchair, tremor of hands.? Skin: n ormal, no rash. Peripheral pulses: n ormal (2+) bilaterally. Extremities: n o leg edema. * Physical Examination: G ENERAL: Pain Assessment: P ain level: 4, on a scale of 0-10 (with 10 being extreme pain). F unctional Status Assessment: P atient response to question of how often physical health interferes with daily activities: occasionally . Has help from her son with A DLs-including meal preparation, grocery shopping, housework, laundry, taking medications or handling finances. Cognitive Status: alert and oriented. Ambulation Status: Fully ambulatory but needs assistance with transfers on occasion . F all Risk Assessment: I ndependant in ambulation, adequate lighting in home. Patient has NOT fallen but has had trouble walking within the past 12 months. D epression Screening: D enies depressed mood or anxiety. Describes emotional health as: positive/upbeat. B ladder Control Screening: D enies problems. Assessment: * Assessment: 1. A dult general medical examination - Z00.00 (Primary) 2 . A cquired hypothyroidism - E03.9 3 . E ssential hypertension - I10 4 . M ixed hyperlipidemia - E78.2 5 . C hronic obstructive pulmonary disease, unspecified COPD type - J44.9 6 . I mayela deficiency - E61.1 7 . E nvironmental allergies - Z91.09 8 . I mpaired fasting glucose - R73.01 ?9. B enign essential tremor - G25.0 1 0. P olyarthralgia - M25.50 & #160; 1 1. C urrent smoker - F17.200 1 2. O steopenia - M85.80 ? 1 3. B PA 22.0-22.9, adult - Z68.22 Plan: * Treatment: 2. A cquired hypothyroidism Refill Levothyroxine Sodium Tablet, 75 MCG, 1 tab(s), orally, once a day, 90 days, 90, Refills 1.? L AB: P-T4 Free (thyroxine) (Collection Date & Time - 09/13/2024 09:02 AM) N ormal Value Reference Range T hyroxine Free (free T4) 1.29 0.86-1.76 - ng/d L * Toya Johnson 09/14/2024 12 :50:05 PM > see TE ?LAB: P-TSH (Collection Date & Time - 09/13/2024 09:02 AM)?Normal* Value Reference Range T SH 0.79 0.43-5.25 - mU/L * Toya Johnson 09/14/2024 12 :50:05 PM > see TE 3.?Essential hypertension?LAB: P-Comprehensive Metabolic Panel (CMP) (Collection Date & Time - 09/13/2024 09:02 AM)?K+ 5.4, Cl 96, creat 0.48* Value Reference Range A /G Ratio 1.5 1.1-2.5 - * A lbumin 4.4 3.5-5.3 - g/dL * A lkaline Phosphatase 105 35-121 - IU/L * A LT (SGPT) 10 <5-47 - IU/L * A ST (SGOT) 16 <5-40 - IU/L * B ilirubin, Total 0.3 <0.2-1.2 - mg/dL * B UN 11 8-23 - mg/dL * C alcium 9.7 8.6-10.4 - mg/dL * C hloride 96 L 97-108 - mmol/L * C O2 27 22-32 - mmol/L * C reatinine 0.48 L 0.50-1.00 - mg/dL * G lucose 86 65-99 - mg/dL * P otassium 5.4 H 3.5-5.3 - mmol/L * S odium 135 135-145 - mmol/L * P rotein 7.4 6.0-8.3 - g/dL * e GFR by Creatinine 93 >59 - mL/min/1.73m2 * Toya Johnson 09/14/2024 12 :50:05 PM > see TE 4.?Mixed hyperlipidemia? Refill Lipitor Tablet, 40 MG, 1 tab(s), orally, once a day, 90 days, 90 Tablet, Refills 1.?LAB: P-Lipid Panel (Collection Date & Time - 09/13/2024 09:02 AM)?trig 150, non-hdl 144* Value Reference Range C holesterol / HDL Ratio 3.94 0.00-4.44 - Ratio * C holesterol 193 <200 - mg/dL * H DL Cholesterol 49 >39 - mg/dL * L DL Cholesterol (Calculation) 114 <130 - mg/d L * L DL/HDL Ratio 2.3 <3.3 - Ratio * N on-HDL Cholesterol 144 H <130 - mg/dL * T riglycerides 150 H <150 - mg/dL * Toya Johnson 09/14/2024 12 :50:05 PM > see TE 5.?Chronic obstructive pulmonary disease, unspecified COPD type? Refill Symbicort Aerosol, 160-4.5 MCG/ACT, INHALE 2 PUFFS BY MOUTH TWICE DAILY, 90, 30.6 Gram, Refills 2.??6.?Iron deficiency?LAB: P-Ferritin (Collection Date & Time - 09/13/2024 09:02 AM)?Normal* Value Reference Range F erritin 48.0 13.0-301.0 - ng/mL * Toya Johnson 09/14/2024 12 :50:05 PM > see TE ?LAB: P-Iron (Collection Date & Time - 09/13/2024 09:02 AM)?Normal* Value Reference Range Kaia Alegre 37-145 - ug/dL * Toya Johnson 09/14/2024 12 :50:05 PM > see TE ?LAB: CBC Venipuncture (in house) (Collection Date & Time - 09/13/2024)* Value Reference Range w bc 13.8 3.5 - 10 * l ymph 15.3 15 - 50 * m id 5.2 2 - 15 * g ran 79.5 35 - 80 * r bc 5.13 3.5 - 5.5 * h gb 15.5 11.5 - 16.5 * h ct 46.4 35 - 55 * m cv 90.4 75 - 100 * m ch 30.2 25 - 35 * m chc 33.4 31 - 38 * p latlet 387 100 - 400 * Lisette Ferguson 09/13/2024 11:28 :55 AM > AlexTommydevon Johansen 09/14/2024 12:50:05 PM > see TE 7.?Environmental allergies? Refill Montelukast Sodium Tablet, 10 MG, 1 tab(s), orally, once a day, 90 days, 90, Refills 1.??8.?Impaired fasting glucose?LAB: Glycohemoglobin A1c (in house) (Collection Date & Time - 09/13/2024)? 5.9%* Value Reference Range g lycohemoglobin 5.9% 5 - 6.5 % * Lisette Ferguson 09/13/2024 11:27 :45 AM > JimlarisaTommydevon Johansen 09/14/2024 12:50:05 PM > see TE 9.?Polyarthralgia? Start Meloxicam Tablet, 7.5 MG, 1 tablet, Orally, Once a day, 90 days, 90 Tablet, Refills 1.? * Immunizations: Prevnar (PCV20) : 0.5 mL (Route: Intramuscular) given by Lisette Ferguson Jaylan on Right Deltoid (Environmental allergies) * Procedure Codes: G 0439 ANNUAL WELLNESS VST; PPS SUBSQT VST, 14261 VISUAL ACUITY SCREEN, G0444 ANNUAL DEPRESSION SCREENING 15 MIN, 1090F PRES/ABSN URINE INCON ASSESS, 3288F FALL RISK ASSESSMENT DOCD, 1170F FXNL STATUS ASSESSED, 1159F MED LIST DOCD IN RCRD, 1003F LEVEL OF ACTIVITY ASSESS, 59865 CBC WITH AUTO DIFF, 40441 GLYCATED HEMOGLOBIN TEST, Modifiers: QW , 1125F AMNT PAIN NOTED PAIN PRSNT, 3044F HG A1C LEVEL LT 7.0%, 3075F SYST BP GE 130 - 139MM HG, 3078F DIAST BP < 80 MM HG * Preventive Medicine: Counseling: E motional health: P atient encouraged to try connecting with family or friends to boost mood. B ladder control: M ethods of controlling or managing leakage of urine discussed. E xercise: P atient advised to start, increase or maintain level of exercise/physical activity. I njury prevention: F all prevention discussed. Discussed need for cane/walker. Potential trip hazards discussed. Immunizations: P neumococcal r ecommended. I nfluenza r ecommended seasonally. Screening / Special Tests: M ammogram R ecent history:, recommended today, patient declines. C olonoscopy R ecent history:, excluded due to age. B one mineral Density?Recent history:03/09/2021, osteopenia, recommended, patient declines. * Follow Up: A s directed by * Billing Information: * Visit Code: 27664 Office Visit, Est Pt., Level 3. Modifiers: 25 * Procedure Codes: G0439 ANNUAL WELLNESS VST; PPS SUBSQT VST. 95498 VISUAL ACUITY SCREEN. G0444 ANNUAL DEPRESSION SCREENING 15 MIN. 1090F PRES/ABSN URINE INCON ASSESS. 3288F FALL RISK ASSESSMENT DOCD. 1170F FXNL STATUS ASSESSED. 1159F MED LIST DOCD IN RCRD. 1003F LEVEL OF ACTIVITY ASSESS. 93484 CBC WITH AUTO DIFF. 81599 GLYCATED HEMOGLOBIN TEST. Modifiers: QW 1125F AMNT PAIN NOTED PAIN PRSNT. 3044F HG A1C LEVEL LT 7.0%. 3075F SYST BP GE 130 - 139MM HG. 3078F DIAST BP < 80 MM HG. * Electronic signature of RADAMES Canas on 02/08/2025 at 11:21 AM EDT Sign off status: Pending * Provider: RADAMES Brito Date: 0 09/13/2024 Generated for Larry santa/Samantha/Brodyitting on: 0 02/08/2025 11:21 AM EDT History and Physical Notes * HPI (History of Present Illness) Category Sub-Category Detail Notes Category Not es HPI Patient is here today for Patien t is here today for a Medicare Annual Wellness Visit. Pt sts she is fasting, and sts she has no new concerns or complaints at this time Physical Examination Category Sub-Category Detail Notes Section Note s GENERAL Pain Assessment: Pain level: 4, on a scale of 0-10 (with 10 being extreme pain) Functional Status Assessment: Patient response to question of how often physical health interferes with daily activities: occasionally . Has help from her son with ADLs-including meal preparation, grocery shopping, housework, laundry, taking medications or handling finances. Cognitive Status: alert and oriented. Ambulation Status: Fully ambulatory but needs assistance with transfers on occasion Fall Risk Assessment: Independant in amb ulation, adequate lighting in home. Patient has NOT fallen but has had trouble walking within the past 12 months Depression Screening: Denies depressed m ood or anxiety. Describes emotional health as: positive/upbeat Bladder Control Screening: Denies proble ms Examination Category Sub-Category Detail Notes Category Not es General Examination HEENT: unremarkable Heart: RSR Lungs: clear to auscultatio n Abdomen: bowel sounds present , soft and nontender, no organomegaly or masses, no guarding or rigidity Extremities: no leg edema General Appearance: NAD Skin: normal, no rash Neurologic Exam: Intact, in a wheelch air, tremor of hands Neck: supple, no lymphaden opathy Oral cavity: no lesions, mucosa m oist and WNL, no erythema Peripheral pulses: normal (2+) bilatera lly Chest: normal shape and exp ansion
--- OUTSIDE RECORDS SUMMARY | 2025-01-09 07:15 | XMS_ITS ---
Author Organization [facility] Address [address] [facility] [address] [place] [id number] Care Team Providers Care Nursing Care Partner Name Role Phone Chester Barney Primary Care Provider Marsha Hernandez Unavailable [phone] Toya Johnson Unavailable [phone] Allergies Allergen (clinical drug ingredient) Drug/Non Drug Allergy documented on EMR Reaction Allergy Type Onset Date Status Substance with penicillin structure and antibacterial mechanism of action (substance) Penicillins Unknown Drug Allergy Active REASON FOR VISIT lab work,allergies & stomach issues Encounters Encounter Location Date Provider Diagnosis [facility] [address] [facility] [address] [facility] [address] [place] [id number] 01/09/2025 Toya Johnson Plan Of Treatment Next Appt Details Provider Name:Toya Cool y, 03/07/2025 09:00:00 AM, [address], [address], [place], [phone], Progress Notes * MICHAEL DEL CASTILLODOB:1940 (84 yo F)Acc No.[id number]:01/09/2025 Progress Notes Patient: Vinod MICHAEL CASTILLO Provider: RADAMES Brito :1940 A ge:84 Y S ex:Female Date:01/09/2025 Address:[facility] [id number] Pcp:Chester Barney Subjective: * Chief Complaints: * 1 . Lab work,allergies & stomach issues. * ROS: D ERMATOLOGY: no R catie. n o H leobardo. G ASTROENTEROLOGY: no N ausea. n o V omiting. n o D iarrhea.? U ROLOGY: no D ifficulty urinating. n o B lood in urine. * Medical History: H ypothyroidism, Hyperlipidemia, Copd, [...] active: no.. Travel ouside [place]: yes. * Allergies: P enicillins. Objective: * Vitals: Assessment: Plan: * Treatment: * Billing Information: * Visit Code: * Procedure Codes: * Electronic signature of RADAMES Canas on 02/08/2025 at 11:21 AM EDT Sign off status: Pending * Provider: RADAMES Brito Date: 0 01/09/2025 Generated for Larry santa/Samantha/Sofie on: 0 02/08/2025 11:21 AM EDT
--- OUTSIDE RECORDS SUMMARY | 2025-02-08 11:21 | XMS_ITS ---
Author Organization Unknown Medications Date Medication Dosage DosageUnit StartDate StopDate StopReason Active DoseQuantity DoseUnit Dispense DispenseUnit Refills NdcCode DrugCode PharmacyId IsPrescription MappedMedication Srcstatus 12/27 00:00 :00 Benzonatate 200 MG Capsule 07/08/2023 00:00:00 1 30 0 [id number] 3 205 P Unknown Status 12/27 00:00 :00 Lipitor 40 MG Tablet 1 90 Tablet 1 6807 1031 030 P Unknown Status 12/27 00:00 :00 Montelukast Sodium 10 MG Tablet 1 90 1 010698 80 806 P Unknown Status 02/07 00:00 :00 Nystatin 335520 UNIT/GM Cream 05/11/2023 00:00:00 0 60 grams 1 005110 46 915 P Not Taking
--- OUTSIDE RECORDS SUMMARY | 2025-02-08 11:22 | XMS_ITS | Patient Health Record ---
Author Organization [facility] Address [address] [facility] [address] [place] [id number] Care Team Providers Care Car Storer Name Role Phone Chester Barney Primary Care Provider [phone] Marsha Hernandez Unavailable [phone] Toya Johnson Unavailable [phone] Allergies Allergen (clinical drug ingredient) Drug/Non Drug [...] 0.48 Performing Lab: Notes/Report: Test performed by [facility] [address] [facility] , [address], [place] [address] Apolinar Calvillo MD, Lard Bleacher CLIA: [id number] Sodium 135 135-145 mmol/L Potassium 5.4 3.5-5.3 [...] Interpretation:Normal Performing Lab: Notes/Report: Test performed by [facility] [address] [place] [address] , [place] [address] Apolinar Calvillo MD, Lard Bleacher CLIA: [id number] Ferritin 48.0 13.0-301.0 ng/mL P-T4 Free (thyroxine) Reviewed date:09/14/2024 12:50:20 PM Interpretation:Normal Performing Lab: Notes/Report: Test performed by [facility] [address] [place] [address] , [place] [address] Apolinar Calvillo MD, Lard Bleacher CLIA: [id number] Thyroxine Free (free T4) 1.29 0.86-1.76 ng/dL P-Iron Reviewed date:09/14/2024 12:50:20 PM Interpretation:Normal Performing Lab: Notes/Report: Test performed by [facility] [address] [place] [address] , [address], [place] [address] Apolinar Calvillo MD, Lard Bleacher CLIA: [id number] Iron 82 37-145 ug/dL P-Lipid Panel Reviewed date:09/14/2024 12:50:20 PM Interpretation:trig 150, non-hdl 144 Performing Lab: Notes/Report: Test performed by [facility] [address] [place] [address] , [address], [place] [address] Apolinar Calvillo MD, Lard Bleacher CLIA: [id number] Cholesterol 193 <200 mg/dL Triglycerides 150 <150 [...] Interpretation:Normal Performing Lab: Notes/Report: Test performed by [facility] [address] [place] [address] , [address], [place] [address] Apolinar Calvillo MD, Lard Bleacher CLIA: [id number] TSH 0.79 0.43-5.25 mU/L CBC Fingerstick (in house) ( Not yet reviewed by provider) Interpretation: Performing Lab: Notes/Report: wbc 18.1 3.5 - 10 lym 16.1 15 - 50 mid 5.0 2 - 15 gran 78.9 35 - 80 rbc 4.71 3.5 - 5.5 hgb 13.7 11.5 - 16.5 hct 42.1 35 - 55 mcv 89.3 75 - 100 mch 29.1 25 - 35 mchc 32.6 31 - 38 plat 298 100 - 400 CBC Fingerstick (in house) Reviewed date:06/13/2024 02:48:29 PM Interpretation: Performing Lab: Notes/Report: wbc 11.6 3.5 - 10 lym 24.2 15 - 50 mid 6.3 2 - 15 gran 69.5 35 - 80 rbc 5.00 3.5 - 5.5 hgb 15.1 11.5 - 16.5 hct 45.4 35 - 55 mcv 90.8 75 - 100 mch 30.1 25 - 35 mchc 33.2 31 - 38 plat 221 100 - 400 Medications Medication SIG (Take, Route, Frequency, Duration) Notes Start Date End Date Status Benzonatate 200 MG 1 capsule as needed Orally Three times a day, prn 02/08/2025 Active Meloxicam 7.5 MG 1 tablet Orally Once a day for 90 days 09/13/2024 Active Zithromax Z-Jb 250 MG as directed Orally 02/08/2025 Active Levothyroxine Sodium 75 MCG 1 tab(s) orally once a day for 90 days Active Flonase Allergy Relief 50 MCG/ACT 1 spray(s) in each nostril once a day for 30 day(s) 08/12/2022 Active WALKER WITH WHEELS AND SEAT DIRECTED NEEDED R26.89R53.81 *Please review for potential replacement for e-prescription and drug interaction check* 06/03/2022 Active Lipitor 40 MG 1 tab(s) orally once a day for 90 days Active Primidone 50 MG 1/2 tab orally qhs for 90 days Active Benzonatate 200 MG 1 capsule Orally Three times a day, prn 07/08/2023 Active Zithromax Z-Jb 250 MG as directed Orally 09/21/2023 Not-Taking Montelukast Sodium 10 MG 1 tab(s) orally once a day for 90 days Active Albuterol Sulfate HFA 108 (90 Base) MCG/ACT 1 puff as needed Inhalation every 4 hrs, prn 07/08/2023 Active Omeprazole 40 MG TAKE 1 CAPSULE BY MOUTH EVERY DAY for 90 days Active Symbicort 160-4.5 MCG/ACT INHALE 2 PUFFS BY MOUTH TWICE DAILY Active Cyclobenzaprine HCl 5 MG 1 tablet Orally three times a day as needed 09/21/2023 Not-Taking ProAir Digihaler 108 (90 Base) MCG/ACT 1-2 puff(s) inhaled 4 times a day as needed Active Immunizations Vaccine Route Administration Date Status Comme nts COVID 19 Cally Unknown 11/05/2020 Administered Fluzone High Dose (65yr and older) IM Intramuscular 06/10/2017 Administered Fluzone High Dose (65yr and older) IM Intramuscular 07/29/2022 Administered pneumovax IM Intramuscular 06/20/2007 Administered Prevnar (PCV13) IM Intramuscular 02/19/2015 Administered Prevnar (PCV20) IM Intramuscular 09/13/2024 Administered xFlu shot-36 months and older IM Intramuscular 06/20/2007 Administered qZqloaeb-hhutbmldk-ickrkpe e pts. IM Intramuscular 05/31/2011 Administered Problems Problem Type SNOMED Code ICD Code Onset Dates Problem Status W/U Status Risk Notes Problem Gastroesophageal reflux disease (717551769) GERD (gastroesophageal reflux disease) (K21.9) Active confirmed Problem 22092028 Essential hypertension (I10) Active confirmed Problem 51797880 Anxiety (F41.9) Active confirmed Problem Osteopenia (993792814) Osteopenia (M85.80) Active confirmed Problem 798869164 Environmental allergies (Z91.09) Active confirmed Problem 945239016 Impaired fasting glucose (R73.01) Active confirmed Problem 098363862 Primary generalized (osteo)arthritis (M15.0) Active confirmed Problem 509592193 Mixed hyperlipidemia (E78.2) Active confirmed Problem 42622225 Other chronic pa in (G89.29) Active confirmed Problem 470941993 Acquired hypothyroidism (E03.9) Active confirmed Problem Chronic obstructive pulmonary disease, unspecified COPD type (J44.9) Active confirmed Problem 173472974 Benign essential tremor (G25.0) Active confirmed Problem 45876312 Chronic obstructive pulmonary disease (J44.9) Active confirmed Problem 47135765 Chronic bronchitis, unspecified chronic bronchitis type (J42) Active confirmed Problem 04963527 Right maxillary sinusitis (J32.0) Active confirmed Problem 19204350 Current smoker (F17.200) Active confirmed Problem 647187113 Balance problems (R26.89) Active confirmed Problem 592424536584180 Piriformis syndrome, 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) Active confirmed Problem 80043920 Serum potassium elevated (E87.5) Active confirmed Problem 46012660 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) Active confirmed Problem 409057086 Seasonal allergi c rhinitis, unspecified allergic rhinitis trigger (J30.2) Active confirmed Problem 202133290 Gastroesophageal reflux disease, unspecified whether esophagitis present (K21.9) Active confirmed Vital Signs Heart Rate 90 /min 02/08/2025 Blood pressure diastolic 72 mm Hg 02/08/2025 Height 63 in 02/08/2025 Blood pressure systolic 130 mm Hg 02/08/2025 Weight 000 lbs 02/08/2025 BMI 22.32 kg/m2 09/13/2024 Encounters Encounter Location Date Provider Diagnosis [facility] [address] [place], [place] [id number] 06/13/2024 Toya Crowdy Right maxillary sinu sitis J32.0 and Pain in gums K06.8 [facility] [address] [place], [place] [id number] 09/13/2024 Toya Johnson Adult general medica l examination Z00.00 ; Acquired hypothyroidism E03.9 ; Essential hypertension I10 ; Mixed hyperlipidemia E78.2 ; Chronic obstructive pulmonary disease, unspecified COPD type J44.9 ; Iron deficiency E61.1 ; Environmental allergies Z91.09 ; Impaired fasting glucose R73.01 ; Benign essential tremor G25.0 ; Polyarthralgia M25.50 ; Current smoker F17.200 ; Osteopenia M85.80 and BMI 22.0-22.9, adult Z68.22 [facility] [address] [place], [place] [id number] 02/08/2025 Toya Johnson Acquired hypothyroid ism E03.9 ; Essential hypertension I10 ; Mixed hyperlipidemia E78.2 ; Chronic obstructive pulmonary disease, unspecified COPD type J44.9 ; Iron deficiency E61.1 ; Environmental allergies Z91.09 ; Impaired fasting glucose R73.01 ; Benign essential tremor G25.0 ; Polyarthralgia M25.50 ; Current smoker F17.200 ; Osteopenia M85.80 and Bronchitis J40 [facility] [address] [place], [place] [id number] 02/29/2024 Toya Johnson Environmental allerg ies Z91.09 and Essential hypertension I10 [facility] [address] [place], [place] [id number] 04/13/2024 Chester Frenchtown [facility] [address] [place], [place] [id number] 05/01/2024 Chester [place] Acquired hypothyroid ism E03.9 and Bronchitis J40 [facility] [address] [place], [place] [id number] 08/09/2024 Toya Johnson [facility] [address] [place], [place] [id number] 09/04/2024 Chester [place] Environmental allerg ies Z91.09 [facility] [address] [place], [place] [id number] 09/07/2024 Chester [place] [facility] [address] [place] [id number] 09/14/2024 Toya Crowdy Bronchitis J40 [facility] [address] [place], [place] [id number] 09/26/2024 Chester [place] Environmental allerg ies Z91.09 [facility] [address] [place], [place] [id number] 10/10/2024 Chester [place] Bronchitis J40 [facility] [address] [place], [place] [id number] 12/27/2024 Chester [place] Bronchitis J40 ; Mix ed hyperlipidemia E78.2 and Environmental allergies Z91.09 Assessments Encounter Date Diagnosis (ICD Code) Assessment Notes Treatment Notes Treatment Clinical Notes Section Notes 02/29/2024 Environmental allergies (ICD-10 - Z91.09) 05/01/2024 Acquired hypothyroidism (ICD-10 - E03.9) 06/13/2024 Right maxillary sinusitis (ICD-10 - J32.0) Likely the cause of her dizziness. Will start on abx and she will f/u if no better. 06/13/2024 Pain in gums (ICD-10 - K06.8) Patient is going to call the dentist today to schedule an appt. 09/04/2024 Environmental allergies (ICD-10 - Z91.09) 09/13/2024 Acquired hypothyroidism (ICD-10 - E03.9) 09/14/2024 Bronchitis (ICD-10 - J40) 09/26/2024 Environmental allergies (ICD-10 - Z91.09) 10/10/2024 Bronchitis (ICD-10 - J40) 09/13/2024 Adult general medical examination (ICD-10 - Z00.00) Patient instructed to return to office Annually for Annual Wellness Visits to include annual screenings of Pain assessment, Functional Ability assessment, Cognitive Ability assessment, Fall Risk assessment, Depression screening and Bladder control screening. 12/27/2024 Bronchitis (ICD-10 - J40) 02/08/2025 Acquired hypothyroidism (ICD-10 - E03.9) 02/08/2025 Essential hypertension (ICD-10 - I10) 12/27/2024 Mixed hyperlipidemia (ICD-10 - E78.2) 09/13/2024 Essential hypertension (ICD-10 - I10) 05/01/2024 Bronchitis (ICD-10 - J40) 02/29/2024 Essential hypertension (ICD-10 - I10) 09/13/2024 Mixed hyperlipidemia (ICD-10 - E78.2) 12/27/2024 Environmental allergies (ICD-10 - Z91.09) 02/08/2025 Mixed hyperlipidemia (ICD-10 - E78.2) 02/08/2025 Chronic obstructive pulmonary disease, unspecified COPD type (ICD-10 - J44.9) 09/13/2024 Chronic obstructive pulmonary disease, unspecified COPD type (ICD-10 - J44.9) 09/13/2024 Iron deficiency (ICD-10 - E61.1) 02/08/2025 Iron deficiency (ICD-10 - E61.1) 02/08/2025 Environmental allergies (ICD-10 - Z91.09) 09/13/2024 Environmental allergies (ICD-10 - Z91.09) 09/13/2024 Impaired fasting glucose (ICD-10 - R73.01) 02/08/2025 Impaired fasting glucose (ICD-10 - R73.01) 09/13/2024 Benign essential tremor (ICD-10 - G25.0) 02/08/2025 Benign essential tremor (ICD-10 - G25.0) 09/13/2024 Polyarthralgia (ICD-10 - M25.50) 02/08/2025 Polyarthralgia (ICD-10 - M25.50) 02/08/2025 Current smoker (ICD-10 - F17.200) 09/13/2024 Current smoker (ICD-10 - F17.200) 09/13/2024 Osteopenia (ICD-10 - M85.80) 02/08/2025 Osteopenia (ICD-10 - M85.80) 09/13/2024 BMI 22.0-22.9, adult (ICD-10 - Z68.22) 02/08/2025 Bronchitis (ICD-10 - J40) Plan Of Treatment Pending Test Test Name Order Date Bone density 01/27/2023 CXR 02/08/2025 CBC Fingerstick (in house) 02/08/2025 CBC Venipuncture (in house) 02/08/2025 Glycohemoglobin A1c (in house) xLC-Glycohemoglobin (GHb),Total 09/02/19 22 H-CBC 10/09/2021 P-BNP (Brain Natriuretic Peptide) 2023 P-Comprehensive Metabolic Panel (CMP) P-Ferritin 02/08/2025 P-T4 Free (thyroxine) 02/08/2025 P-Iron 02/08/2025 P-Lipid Panel 02/08/2025 P-TSH 02/08/2025 Next Appt Details Provider Name:Toya juarez, 03/07/2025 09:00:00 AM, [address] [facility], [address], [place], [place], [id number], Insurance Providers Payer Name Payer Address Payer Phone Subscriber Number Group Number Insured Name Patient Relationship to Insured Coverage Start Date Coverage End Date [employer] [address] [address] [place], [place] [id number] MICHAEL DEL CASTILLO Self - patient is the insured Medications Administered Medication Instructions Date of Administration Dosage Notes Depo- Medrol 40 mg/ml 10/07/2023 1.5 mL Dexamethasone 12/13/2009 1mL Medical (General) History Medical History History ICD Code Hypothyroidism hyperlipidemia copd hyponatremia kidney stones allergic rhinitis Surgical History Surgery Date(Month/Year) hysterectomy abdominal Knee surgery Hospitalization History Reason Date(Month/Year) see above
--- NOTE | 2025-02-08 11:24 | XR_ITS ---
FINAL REPORT CLINICAL HISTORY: BRONCHITIS COMPARISON: 10/09/2021 FINDINGS: CHEST 2 VIEWS PA AND LATERAL The heart is normal in size. The mediastinum is unremarkable. There is a moderate hiatal hernia. There is new airspace opacity at the left base consistent with pneumonia or aspiration. Small left effusion is identified. The right lung is clear. There is no pneumothorax. IMPRESSION: Findings consistent with left lung pneumonia. Reviewed, Interpreted and Dictated by Teofilo Chavarria MD Transcribed by Diane Yin Authenticated and . [facility]
== END 2025-02-08 23:59 | disposition home or self-care (01) ==
LOC: RAD 11:20
PROVIDERS: PCP Physician Assistant; Visit Provider Physician Assistant
DX: J90 Pleural effusion, not elsewhere classified (principal); J98.4 Other disorders of lung; K44.9 Diaphragmatic hernia without obstruction or gangrene
CPT/HCPCS: 71046

== ENCOUNTER 2025-03-07 10:56 | Outpatient (CLI) | payer MEDICARE, SELFPAY ==
--- OUTSIDE RECORDS SUMMARY | 2025-02-21 06:15 | XMS_ITS ---
Author Organization [facility] Address [address] [place] [id number] Care Team Providers Care Egg Candler Name Role Phone Chester Barney Primary Care Provider [phone] Marsha Hernandez Unavailable [phone] Toya Johnson Unavailable [phone] Allergies Allergen (clinical drug ingredient) Drug/Non Drug Allergy documented on EMR Reaction Allergy Type Onset Date Status Substance with penicillin structure and antibacterial mechanism of action (substance) Penicillins Unknown Drug Allergy Active Results Component Value Reference Range Notes CBC Fingerstick (in house) Reviewed date:02/21/2025 03:21:47 PM Interpretation: Performing Lab: Notes/Report: wbc 14.9 3.5 - 10 lym 17.4% 15 - 50 mid 5.0% 2 - 15 gran 77.6% 35 - 80 rbc 4.67 3.5 - 5.5 hgb 13.5 11.5 - 16.5 hct 41.8 35 - 55 mcv 89.3 75 - 100 mch 28.9 25 - 35 mchc 32.4 31 - 38 plat 308 100 - 400 REASON FOR VISIT 1 week f/u Medications Medication SIG (Take, Route, Frequency, Duration) Notes Start Date End Date Status Cyclobenzaprine HCl 5 MG 1 tablet Orally three times a day as needed 09/21/2023 Not-Taking Benzonatate 200 MG 1 capsule as needed Orally Three times a day, prn 02/08/2025 Active Zithromax Z-Jb 250 MG as directed Orally 09/21/2023 Not-Taking Cefdinir 300 MG as directed Orally Two times a day; Duration: 10 days 02/21/2025 Active Meloxicam 7.5 MG 1 tablet Orally Once a day; Duration: 90 days 09/13/2024 Active Lipitor 40 MG 1 tab(s) orally once a day; Duration: 90 days Active Symbicort 160-4.5 MCG/ACT INHALE 2 PUFFS BY MOUTH TWICE DAILY Active Montelukast Sodium 10 MG 1 tab(s) orally once a day; Duration: 90 days Active ProAir Digihaler 108 (90 Base) MCG/ACT 1-2 puff(s) inhaled 4 times a day as needed Active Flonase Allergy Relief 50 MCG/ACT 1 spray(s) in each nostril once a day; Duration: 30 day(s) 08/12/2022 Active Albuterol Sulfate HFA 108 (90 Base) MCG/ACT 1 puff as needed Inhalation every 4 hrs, prn 07/08/2023 Active Omeprazole 40 MG TAKE 1 CAPSULE BY MOUTH EVERY DAY; Duration: 90 days Active Levothyroxine Sodium 75 MCG 1 tab(s) orally once a day; Duration: 90 days Active WALKER WITH WHEELS AND SEAT DIRECTED NEEDED R26.89R53.81 *Please review for potential replacement for e-prescription and drug interaction check* 06/03/2022 Active Primidone 50 MG 1/2 tab orally qhs; Duration: 90 days Active Vital Signs Weight 117.4 lbs 02/21/2025 Blood pressure systolic 130 mm Hg 02/22/20 25 Blood pressure diastolic 60 mm Hg 025 Heart Rate 65 /min 02/21/2025 Height 63 in 02/21/2025 BMI 20.79 kg/m2 02/21/2025 Encounters Encounter Location Date Provider Diagnosis [facility] [address], [place] [phone] 02/21/2025 Toya Crowdy Pneumonia of left lo wer lobe due to infectious organism J18.9 ; Lymphadenopathy R59.1 and BMI 20.0-20.9, adult Z68.20 Assessments Encounter Date Diagnosis (ICD Code) Assessment Notes Treatment Notes Treatment Clinical Notes Section Notes 02/21/2025 Pneumonia of left lower lobe due to infectious organism (ICD-10 - J18.9) Has finished zithromax and WBC is still elevated. Will add cefdinir and recheck CBC in 1 week. Will also get a sputum culture. 02/21/2025 Lymphadenopathy (ICD-10 - R59.1) Cefdinir should help with this as well 02/21/2025 BMI 20.0-20.9, adult (ICD-10 - Z68.20) Plan Of Treatment Medication Medication Name Sig Start Date Stop Date Notes Cefdinir 300 MG as directed Orally T wo times a day; Duration: 10 days 02/21/2025 Treatment Notes Assessment Notes Pneumonia of left lower lobe due to infectious organism Has finished zithromax and WBC is still elevated. Will add cefdinir and recheck CBC in 1 week. Will also get a sputum culture. Lymphadenopathy Cefdinir should help with this as well Pending Test Test Name Order Date H-Sputum Culture with Gram Stain 025 Next Appt Details Follow Up: 1 Week, Reason: Progress Notes * MICHAEL DEL CASTILLODOB:1940 (84 yo F)Acc No.[id number]:02/21/2025 Patient: Vinod CASTILLOMICHAEL Provider: RADAMES Brito :1940 A ge:84 Y S ex:Female Date:02/21/2025 Address:[facility] [place], [id number] Pcp:Chester Barney Subjective: * Chief Complaints: * 1 . 1 week f/u. * HPI: E NT/respiratory: The pt is here for a follow up on Pneumonia. Pt states she is felling better. Pt states she is still coughing up some greenish yellow sputum but better than is had been. 84 year old female presents with c/o cough g reenish yellow sputum production. Denies : sore throat. D enies : Fever. * ROS: D ERMATOLOGY: no R catie. [...] tab(s) orally once a day , Taking Meloxicam 7.5 MG Tablet 1 tablet Orally Once a day , Taking Lipitor 40 MG Tablet 1 tab(s) orally once a day , Taking Symbicort 160-4.5 MCG/ACT Aerosol INHALE 2 PUFFS BY MOUTH TWICE DAILY , Taking Montelukast Sodium 10 MG Tablet 1 tab(s) orally once a day , Taking Benzonatate 200 MG Capsule 1 capsule as needed Orally Three times a day, prn , Not-Taking Cyclobenzaprine HCl 5 MG Tablet 1 tablet Orally three times a day as needed , Not-Taking Zithromax Z-Jb 250 MG Tablet as directed Orally , Discontinued Benzonatate 200 MG Capsule 1 capsule Orally Three times a day, prn , Discontinued Zithromax Z-Jb 250 MG Tablet as directed Orally , Medication List reviewed and reconciled with the patient * Allergies: P enicillins. Objective: * Vitals: W t: 117.4, Temp: 97.7, BP: 130/60, HR: 65, O2 Sat: 96% on RA, Nurse: TANYA, Ht: 63, BMI:20.79. * Examination: G eneral Examination: General Appearance: N AD. H EENT: u nremarkable.?Oral cavity: n o lesions, mucosa moist and WNL, no erythema. N [place]: s upple, tender cervical lymph nodes on the left side. C hest: n ormal shape and expansion. H eart: R SR. L ungs: r ales in the left base, faint wheezes, better air movement. ? Assessment: * Assessment: 1. P neumonia of left lower lobe due to infectious organism - J18.9 (Primary) 2 . L ymphadenopathy - R59.1 3 . B TN 20.0-20.9, adult - Z68.20 ? Plan: * Treatment: Value Reference Range w bc 14.9 3.5 - 10 * l ym 17.4% 15 - 50 * m id 5.0% 2 - 15 * g ran 77.6% 35 - 80 * r bc 4.67 3.5 - 5.5 * h gb 13.5 11.5 - 16.5 * h ct 41.8 35 - 55 * m cv 89.3 75 - 100 * m ch 28.9 25 - 35 * m chc 32.4 31 - 38 * p lat 308 100 - 400 * Josette Flores 02/21/2025 10 :28:29 AM EDT > Provider reviewed results while patient in office.Toya Johnson 02/21/2025 03:21:44 PM EDT > Notes: Has finished zithromax and WBC is still elevated. Will add cefdinir and recheck CBC in 1 week. Will also get a sputum culture.??2.?Lymphadenopathy? Notes: Cefdinir should help with this as well?? * Procedure Codes: G 2211 Complex e/[place], [address] CAPILLARY BLOOD DRAW, 33868 CBC WITH AUTO DIFF, G8783 BP SCR PRFRM RCMDD DEFIND SCR INTVL, G8752 MOST RECENT SYSTOLIC BP < 140MM HG, G8754 MOST RECENT DIASTOLIC BP < 90MM HG, G8420 BMI<30 AND >=22 CALC & DOCU * Follow Up: 1 Week * Images: Billing Information: * Visit Code: 44393 Office Visit, Est Pt., Level 3. * Procedure Codes: G2211 Complex e/[place]. [address] CAPILLARY BLOOD DRAW. 83323 CBC WITH AUTO DIFF. G8783 BP SCR PRFRM RCMDD DEFIND SCR INTVL. G8752 MOST RECENT SYSTOLIC BP < 140MM HG. G8754 MOST RECENT DIASTOLIC BP < 90MM HG. G8420 BMI<30 AND >=22 CALC & DOCU. * Electronic signature of RADAMES Canas on 03/07/2025 at 11:05 AM EDT Sign off status: Pending * Provider: RADAMES Brito Date: 0 02/21/2025 Generated for Larry santa/Samantha/Sofie on: 03/07/2025 11:05 AM EDT History and Physical Notes * HPI (History of Present Illness) Category Sub-Category Detail Notes Category Not es ENT/respiratory sore throat cough greenish yellow sput um production Fever Examination Category Sub-Category Detail Notes Category Not es General Examination HEENT: unremarkable Heart: RSR Lungs: rales in the left ba se, faint wheezes, better air movement General Appearance: NAD Neck: supple, tender cervi thiago lymph nodes on the left side Oral cavity: no lesions, mucosa m oist and WNL, no erythema Chest: normal shape and exp ansion
--- OUTSIDE RECORDS SUMMARY | 2025-02-28 06:15 | XMS_ITS ---
Author Organization [facility] Address [address] [id number] Care Team Providers Care Automotive [employer] Systems Converter Name Role Phone Chester Barney Primary Care Provider [phone] Marsha Hernandez Unavailable [phone] Toya Johnson Unavailable [phone] Allergies Allergen (clinical drug ingredient) Drug/Non Drug Allergy documented on EMR Reaction Allergy Type Onset Date Status Substance with penicillin structure and antibacterial mechanism of action (substance) Penicillins Unknown Drug Allergy Active Results Component Value Reference Range Notes CBC Venipuncture (in house) Reviewed date:02/28/2025 04:54:43 PM Interpretation: Performing Lab: Notes/Report: wbc 16.6 3.5 - 10 lymph 22.1 15 - 50 mid 5.1 2 - 15 gran 72.8 35 - 80 rbc 4.58 3.5 - 5.5 hgb 13.6 11.5 - 16.5 hct 40.3 35 - 55 mcv 88.0 75 - 100 mch 29.7 25 - 35 mchc 33.8 31 - 38 platlet 161 100 - 400 REASON FOR VISIT 1 week, Due for Bone Density Screening Medications Medication SIG (Take, Route, Frequency, Duration) Notes Start Date End Date Status Lipitor 40 MG 1 tab(s) orally once a day; Duration: 90 days Active Meloxicam 7.5 MG 1 tablet Orally Once a day; Duration: 90 days 09/13/2024 Active Benzonatate 200 MG 1 capsule as needed Orally Three times a day, prn 02/08/2025 Active Montelukast Sodium 10 MG 1 tab(s) orally once a day; Duration: 90 days Active Symbicort 160-4.5 MCG/ACT INHALE 2 PUFFS BY MOUTH TWICE DAILY Active Omeprazole 40 MG TAKE 1 CAPSULE BY MOUTH EVERY DAY; Duration: 90 days Active ProAir Digihaler 108 (90 Base) MCG/ACT 1-2 puff(s) inhaled 4 times a day as needed Active Flonase Allergy Relief 50 MCG/ACT 1 spray(s) in each nostril once a day; Duration: 30 day(s) 08/12/2022 Active Levothyroxine Sodium 75 MCG 1 tab(s) orally once a day; Duration: 90 days Active Albuterol Sulfate HFA 108 (90 Base) MCG/ACT 1 puff as needed Inhalation every 4 hrs, prn 07/08/2023 Active Cefdinir 300 MG as directed Orally Two times a day; Duration: 10 days Active WALKER WITH WHEELS AND SEAT DIRECTED NEEDED R26.89R53.81 *Please review for potential replacement for e-prescription and drug interaction check* 06/03/2022 Active Primidone 50 MG 1/2 tab orally qhs; Duration: 90 days Active Vital Signs Weight 116.8 lbs 02/28/2025 Blood pressure systolic 132 mm Hg 02/29/20 25 Blood pressure diastolic 68 mm Hg 025 Heart Rate 76 /min 02/28/2025 Height 63 in 02/28/2025 BMI 20.69 kg/m2 02/28/2025 Encounters Encounter Location Date Provider Diagnosis [facility] [address] [facility] [address] [place] [address], [place] [id number] 02/28/2025 Toya Crowdy Pneumonia of left lo wer lobe due to infectious organism J18.9 Assessments Encounter Date Diagnosis (ICD Code) Assessment Notes Treatment Notes Treatment Clinical Notes Section Notes 02/28/2025 Pneumonia of left lower lobe due to infectious organism (ICD-10 - J18.9) Lymph node has improved. Lung sounds have improved. WBC is still elevated but she has 5 more days of abx. Will recheck a CBC in 1 week. May need a repeat CXR if still elevated at that time. Plan Of Treatment Medication Medication Name Sig Start Date Stop Date Notes Cefdinir 300 MG as directed Orally T wo times a day; Duration: 10 days Treatment Notes Assessment Notes Pneumonia of left lower lobe due to infectious organism Lymph node has improved. Lung sounds hav e improved. WBC is still elevated but she has 5 more days of abx. Will recheck a CBC in 1 week. May need a repeat CXR if still elevated at that time. Next Appt Details Follow Up: 1 Week, Reason: Progress Notes * MICHAEL DEL CASTILLODOB:1940 (84 yo F)Acc No.[id number]:02/28/2025 Progress Notes Patient: MICHAEL LONGORIA Provider: RADAMES Brito :1940 A ge:84 Y S ex:Female Date:02/28/2025 Address:[address], [id number] Pcp:Chester Barney Subjective: * Chief Complaints: * 1 . 1 week. 2. Due for Bone Density Screening. * HPI: E NT/respiratory: Pt here to f/u on Pneumonia. Pt states she is doing better. Pt states she has no other concerns today. * ROS: D ERMATOLOGY: no R catie. [...] Three times a day, prn , Taking Cefdinir 300 MG Capsule as directed Orally Two times a day , Discontinued Cyclobenzaprine HCl 5 MG Tablet 1 tablet Orally three times a day as needed , Discontinued Zithromax Z-Jb 250 MG Tablet as directed Orally , Medication List reviewed and reconciled with the patient * Allergies: P enicillins. Objective: * Vitals: W t: 116.8, Temp: 97.9, BP: 132/68, HR: 76, O2 Sat: 92% on RA, Nurse: guzman, Ht: 63, BMI:20.69. * Examination: G eneral Examination: General Appearance: N AD. H EENT: u nremarkable.?Oral cavity: n o lesions, mucosa moist and WNL, no erythema. C hest: n ormal shape and expansion. H eart: R SR. L ungs: f aint expiratory wheezes, no rales, better air movement. Assessment: * Assessment: 1. P neumonia of left lower lobe due to infectious organism - J18.9 (Primary) Plan: * Treatment: Value Reference Range w bc 16.6 3.5 - 10 * l ymph 22.1 15 - 50 * m id 5.1 2 - 15 * g ran 72.8 35 - 80 * r bc 4.58 3.5 - 5.5 * h gb 13.6 11.5 - 16.5 * h ct 40.3 35 - 55 * m cv 88.0 75 - 100 * m ch 29.7 25 - 35 * m chc 33.8 31 - 38 * p latlet 161 100 - 400 * Josette Flores L 02/28/2025 11: 04:09 AM EDT > Notes: Lymph node has improved. Lung sounds have improved. WBC is still elevated but she has 5 moredays of abx. Will recheck a CBC in 1 week. May need a repeat CXR if still elevated at that time. ? * Procedure Codes: 8 5025 CBC WITH AUTO DIFF, 11203 VENIPUNCT, ROUTINE* * Follow Up: 1 Week * Images: Billing Information: * Visit Code: 60511 Office Visit, Est Pt., Level 3. * Procedure Codes: 23963 CBC WITH AUTO DIFF. 93974 VENIPUNCT, ROUTINE*. * Electronic signature of RADAMES Canas on 03/07/2025 at 11:05 AM EDT Sign off status: Pending * Provider: RADAMES Brito Date: 02/28/2025 Generated for Larry santa/Samantha/eTransmitting on: 0 03/07/2025 11:05 AM EDT History and Physical Notes * Examination Category Sub-Category Detail Notes Category Not es General Examination HEENT: unremarkable Heart: RSR Lungs: faint expiratory whe ezes, no rales, better air movement General Appearance: NAD Oral cavity: no lesions, mucosa m oist and WNL, no erythema Chest: normal shape and exp ansion
--- NOTE | 2025-03-07 11:04 | XR_ITS ---
FINAL REPORT CLINICAL HISTORY: PNEUMONIA LT-LOWER LOBE DUE TO INFECTIOUS ORGANISM COMPARISON: 01/29/2025 FINDINGS: CHEST 2 VIEWS PA AND LATERAL There is mild cardiomegaly. Moderate lateral hernia is identified. There is scarring at the lung bases. There is blunting of the left costophrenic angle, probably due to pleural scarring. There is no pneumothorax. IMPRESSION: No acute process. Reviewed, Interpreted and Dictated by Teofilo Chavarria MD Transcribed by Diane Yin Authenticated and [facility]
--- OUTSIDE RECORDS SUMMARY | 2025-03-07 11:05 | XMS_ITS | Patient Health Record ---
Author Organization [facility] Address [address] [facility] [address] [place] [id number] Care Team Providers Care Cherry Grower Name Role Phone Chester Barney Primary Care Provider Marsha Hernandez Unavailable [phone] Toya Johnson Unavailable [phone] Allergies Allergen (clinical drug ingredient) Drug/Non Drug [...] 1.1 Performing Lab: Notes/Report: Test performed by [facility] [address] [place] [address] , [place] [address] Apolinar Calvillo MD, Staff Therapist CLIA: [id number] Sodium 130 135-145 mmol/L Potassium 4.8 3.5-5.3 [...] Interpretation:Normal Performing Lab: Notes/Report: Test performed by [facility] [address] [place] [address] , [place] [address] Apolinar Calvillo MD, Staff Therapist CLIA: [id number] Ferritin 109.0 13.0-301.0 ng/mL P-T4 Free (thyroxine) Reviewed date:02/14/2025 02:50:42 PM Interpretation:Normal Performing Lab: Notes/Report: Test performed by [facility] [address] [place] [address] , [place] [address] Apolinar Calvillo MD, Staff Therapist CLIA: [id number] Thyroxine Free (free T4) 1.46 0.86-1.76 ng/dL P-Iron Reviewed date:02/14/2025 02:50:42 PM Interpretation:38 Performing Lab: Notes/Report: Test performed by [facility] [address] [place] [address] , [address], [place] [address] Apolinar Calvillo MD, Staff Therapist CLIA: [id number] Iron 38 37-145 ug/dL P-Lipid Panel Reviewed date:02/14/2025 02:50:42 PM Interpretation:Normal Performing Lab: Notes/Report: Test performed by [facility] [address] [facility] , [address], [place] [address] Aoplinar Calvillo MD, Staff Therapist CLIA: [id number] Cholesterol 149 <200 mg/dL Triglycerides 122 <150 [...] Interpretation:Normal Performing Lab: Notes/Report: Test performed by [facility] [address] [place] [address] , [address], [place] [address] Apolinar Calvillo MD, Staff Therapist CLIA: [id number] TSH 0.58 0.43-5.25 mU/L CXR Reviewed date:02/14/2025 02:50:42 PM Interpretation:Pneumonia Performing Lab: Notes/Report: Pneumonia CBC Fingerstick (in house) Reviewed date:02/21/2025 03:21:47 [...] - 38 plat 308 100 - 400 CBC Fingerstick (in house) ( Not yet reviewed by provider) Interpretation: Performing Lab: Notes/Report: wbc 15.8 3.5 - 10 lym 11.0 15 - 50 mid 4.1 2 - 15 gran 84.9 35 - 80 rbc 4.79 3.5 - 5.5 hgb 14.2 11.5 - 16.5 hct 43.7 35 - 55 mcv 91.2 75 - 100 mch 29.6 25 - 35 mchc 32.4 31 - 38 plat 436 100 - 400 CBC Fingerstick (in house) [...] - 38 plat 221 100 - 400 CBC Venipuncture (in house) Reviewed date:09/14/2024 12:50:20 [...] 0.48 Performing Lab: Notes/Report: Test performed by [facility] [facility] , [address], [place] [address] Apolinar Calvillo MD, Staff Therapist CLIA: [id number] Sodium 135 135-145 mmol/L Potassium 5.4 3.5-5.3 [...] Interpretation:Normal Performing Lab: Notes/Report: Test performed by [facility] [address] , [address], [place] [address] Apolinar Calvillo MD, Staff Therapist CLIA: [id number] Ferritin 48.0 13.0-301.0 ng/mL P-T4 Free (thyroxine) Reviewed date:09/14/2024 12:50:20 PM Interpretation:Normal Performing Lab: Notes/Report: Test performed by [facility] , [facility] [place] [address] Apolinar Calvillo MD, Staff Therapist CLIA: [id number] Thyroxine Free (free T4) 1.29 0.86-1.76 ng/dL P-Iron Reviewed date:09/14/2024 12:50:20 PM Interpretation:Normal Performing Lab: Notes/Report: Test performed by [facility] [address] , [address], [place] [address] Apolinar Calvillo MD, Staff Therapist CLIA: [id number] Iron 82 37-145 ug/dL P-Lipid Panel Reviewed date:09/14/2024 12:50:20 PM Interpretation:trig 150, non-hdl 144 Performing Lab: Notes/Report: Test performed by [facility] [address] , [address], [place] [id number] Apolinar Calvillo MD, Staff Therapist CLIA: [id number] Cholesterol 193 <200 mg/dL Triglycerides 150 <150 [...] Interpretation:Normal Performing Lab: Notes/Report: Test performed by [facility] [address] [facility] [address], [place] [address] Apolinar Calvillo MD, Staff Therapist CLIA: [id number] TSH 0.79 0.43-5.25 mU/L CBC Venipuncture (in house) Reviewed date:02/28/2025 04:54:43 [...] - 38 platlet 161 100 - 400 Medications Medication SIG (Take, Route, Frequency, Duration) Notes Start Date End Date Status Doxycycline Monohydrate 100 MG 1 capsule Orally twice a day; Duration: 10 days 03/07/2025 Active Lipitor 40 MG 1 tab(s) orally once a day; Duration: 90 days Active Symbicort 160-4.5 MCG/ACT INHALE 2 PUFFS BY MOUTH TWICE DAILY Active Levothyroxine Sodium 75 MCG 1 tab(s) orally once a day; Duration: 90 days Active Meloxicam 7.5 MG 1 tablet Orally Once a day; Duration: 90 days 09/13/2024 Active Omeprazole 40 MG TAKE 1 CAPSULE BY MOUTH EVERY DAY; Duration: 90 days Active Albuterol Sulfate HFA 108 (90 Base) MCG/ACT 1 puff as needed Inhalation every 4 hrs, prn 07/08/2023 Active Flonase Allergy Relief 50 MCG/ACT 1 spray(s) in each nostril once a day; Duration: 30 day(s) 08/12/2022 Active ProAir Digihaler 108 (90 Base) MCG/ACT 1-2 puff(s) inhaled 4 times a day as needed Active Cefdinir 300 MG as directed Orally Two times a day; Duration: 10 days Active Montelukast Sodium 10 MG 1 tab(s) orally once a day; Duration: 90 days Active Benzonatate 200 MG 1 capsule as needed Orally Three times a day, prn 02/08/2025 Active Primidone 50 MG 1/2 tab orally qhs; Duration: 90 days Active WALKER WITH WHEELS AND SEAT DIRECTED NEEDED R26.89R53.81 *Please review for potential replacement for e-prescription and drug interaction check* 06/03/2022 Active Immunizations Vaccine Route Administration Date Status Comme nts COVID 19 Cally Unknown 11/05/2020 Administered Fluzone High Dose (65yr and older) IM Intramuscular 06/10/2017 Administered Fluzone High Dose (65yr and older) IM Intramuscular 07/29/2022 Administered pneumovax IM Intramuscular 06/20/2007 Administered Prevnar (PCV13) IM Intramuscular 02/19/2015 Administered Prevnar (PCV20) IM Intramuscular 09/13/2024 Administered xFlu shot-36 months and older IM Intramuscular 06/20/2007 Administered kDxkfvcq-fawemdnjh-asbvnkw e pts. IM Intramuscular 05/31/2011 Administered Problems Problem Type SNOMED Code ICD Code Onset Dates Problem Status W/U Status Risk Notes Problem Gastroesophageal reflux disease (657660725) GERD (gastroesophageal reflux disease) (K21.9) Active confirmed Problem Essential hypertension (33230277) Essential hypertension (I10) Active confirmed Problem Anxiety (65963511) Anxiety (F41.9) Active confi rmed Problem Osteopenia (225749116) Osteopenia (M85.80) Active confirmed Problem Environmental allergy (156026116) Environmental allergies (Z91.09) Active confirmed Problem Impaired fasting glucose (739105409) Impaired fasting glucose (R73.01) Active confirmed Problem 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) Active confirmed Problem Mixed hyperlipidemia (060383673) Mixed hyperlipidemia (E78.2) Active confirmed Problem Chronic pain (76678957) Other chronic pain (G89.29) Active confirmed Problem Acquired hypothyroidism (564924964) Acquired hypothyroidism (E03.9) Active confirmed Problem COPD - Chronic obstructive pulmonary disease (76542298) Chronic obstructive pulmonary disease, unspecified COPD type (J44.9) Active confirmed Problem Essential tremor (969126846) Benign essential tremor (G25.0) Active confirmed Problem Chronic obstructive pulmonary disease (67918046) Chronic obstructive pulmonary disease (J44.9) Active confirmed Problem Chronic bronchitis (66639389) Chronic bronchitis, unspecified chronic bronchitis type (J42) Active confirmed Problem Chronic maxillary sinusitis (67301677) Right maxillary sinusitis (J32.0) Active confirmed Problem Current smoker (44801284) Current smoker (F17.200) Active confirmed Problem Problem with balance (213584625) Balance problems (R26.89) Active confirmed Problem Sciatic nerve lesion (463339665) Piriformis syndrome, 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) Active confirmed Problem Hyperkalemia (93265689) Serum potassium elevated (E87.5) Active confirmed Problem Occlusion and stenosis of multiple and bilateral cerebral arteries (819585012) Bilateral carotid artery stenosis (I65.23) Active confirmed Problem Seasonal allergic rhinitis (360354241) Seasonal allergic rhinitis, unspecified allergic rhinitis trigger (J30.2) Active confirmed Problem Gastroesophageal reflux disease (347638225) Gastroesophageal reflux disease, unspecified whether esophagitis present (K21.9) Active confirmed Vital Signs Heart Rate 62 /min 03/07/2025 Blood pressure diastolic 60 mm Hg 03/07/2025 Height 63 in 03/07/2025 Blood pressure systolic 132 mm Hg 03/07/2025 Weight 115 lbs 03/07/2025 BMI 20.37 kg/m2 03/07/2025 Encounters Encounter Location Date Provider [facility] [address] [id number] 06/13/2024 Toya Johnson Right maxillary sinu sitis J32.0 and Pain in gums K06.8 [facility] [address] [place] [facility] [address] [id number] 09/13/2024 Toya Johnson Adult general medica l examination Z00.00 ; Acquired hypothyroidism E03.9 ; Essential hypertension I10 ; Mixed hyperlipidemia E78.2 ; Chronic obstructive pulmonary disease, unspecified COPD type J44.9 ; Iron deficiency E61.1 ; Environmental allergies Z91.09 ; Impaired fasting glucose R73.01 ; Benign essential tremor G25.0 ; Polyarthralgia M25.50 ; Current smoker F17.200 ; Osteopenia M85.80 and BMI 22.0-22.9, adult Z68.22 [facility] [address] [facility] [address] [id number] 02/08/2025 Toya Johnson Acquired hypothyroid ism E03.9 [...] M79.10 ; Polyarthralgia M25.50 and Osteopenia M85.80 [facility] [address] [place], [place] [id number] 02/21/2025 Toya Crowdy Pneumonia of left lo wer lobe due to infectious organism J18.9 ; Lymphadenopathy R59.1 and BMI 20.0-20.9, adult Z68.20 [facility] [address] [place], [place] [id number] 02/28/2025 Toya Crowdy Pneumonia of left lo wer lobe due to infectious organism J18.9 [facility] [address] [place], [place] [id number] 03/07/2025 Toya Crowdy Pneumonia of left lo wer lobe due to infectious organism J18.9 [facility] [address] [place], [place] [id number] 04/13/2024 Chester Henrietta [facility] [address] [place], [place] [id number] 05/01/2024 Chester Henrietta Acquired hypothyroid ism E03.9 and Bronchitis J40 [facility] [address] [place], [place] [id number] 08/09/2024 Toya Crowdy [facility] [address] [place], [place] [id number] 09/04/2024 Chesetr Henrietta Environmental allerg ies Z91.09 [facility] [address] [place], [place] [id number] 09/07/2024 Chester Henrietta [facility] [address] [place], [place] [id number] 09/14/2024 Toya Crowdy Bronchitis J40 [facility] [address] [place], [place] [id number] 09/26/2024 Chester Henrietta Environmental allerg ies Z91.09 [facility] [address] [place], [place] [id number] 10/10/2024 Chester Henrietta Bronchitis J40 [facility] [address] [place], [place] [id number] 12/27/2024 Chester Henrietta Bronchitis J40 ; Mix ed hyperlipidemia E78.2 and Environmental allergies Z91.09 [facility] [address] [place], [place] [id number] 02/12/2025 Chester Henrietta [facility] [address] [place], [place] [id number] 02/14/2025 Toya Johnson Assessments Encounter Date Diagnosis (ICD Code) Assessment Notes Treatment Notes Treatment Clinical Notes Section Notes 05/01/2024 Acquired hypothyroidism (ICD-10 - E03.9) 06/13/2024 [...] screening. 12/27/2024 Bronchitis (ICD-10 - J40) 02/08/2025 Essential hypertension (ICD-10 - I10) 02/08/2025 Acquired hypothyroidism (ICD-10 - E03.9) 02/21/2025 Lymphadenopathy (ICD-10 - R59.1) Cefdinir should help with this as well 02/21/2025 Pneumonia of left lower lobe due to infectious organism (ICD-10 - J18.9) Has finished zithromax and WBC is still elevated. Will add cefdinir and recheck CBC in 1 week. Will also get a sputum culture. 02/28/2025 Pneumonia of left lower lobe due to infectious organism (ICD-10 - J18.9) Lymph node has improved. Lung sounds have improved. WBC is still elevated but she has 5 more days of abx. Will recheck a CBC in 1 week. May need a repeat CXR if still elevated at that time. 03/07/2025 Pneumonia of left lower lobe due to infectious organism (ICD-10 - J18.9) Lymph node has improved. Lung sounds have improved. WBC is still elevated but she has 5 more days of abx. Will recheck a CBC in 1 week. May need a repeat CXR if still elevated at that time. 02/21/2025 BMI 20.0-20.9, adult (ICD-10 - Z68.20) 02/08/2025 Mixed hyperlipidemia (ICD-10 - E78.2) 12/27/2024 Mixed hyperlipidemia (ICD-10 - E78.2) 09/13/2024 Essential hypertension (ICD-10 - I10) 05/01/2024 Bronchitis (ICD-10 - J40) 09/13/2024 Mixed hyperlipidemia (ICD-10 - E78.2) 12/27/2024 Environmental allergies (ICD-10 - Z91.09) 02/08/2025 Chronic obstructive pulmonary disease, unspecified COPD type (ICD-10 - J44.9) 02/08/2025 Iron deficiency (ICD-10 - E61.1) 09/13/2024 Chronic obstructive pulmonary disease, unspecified COPD type (ICD-10 - J44.9) 09/13/2024 Iron deficiency (ICD-10 - E61.1) 02/08/2025 Environmental allergies (ICD-10 - Z91.09) 02/08/2025 Impaired fasting glucose (ICD-10 - R73.01) 09/13/2024 Environmental allergies (ICD-10 - Z91.09) 09/13/2024 Impaired fasting glucose (ICD-10 - R73.01) 02/08/2025 Benign essential tremor (ICD-10 - G25.0) 02/08/2025 Current smoker (ICD-10 - F17.200) 09/13/2024 Benign essential tremor (ICD-10 - G25.0) 09/13/2024 Polyarthralgia (ICD-10 - M25.50) 02/08/2025 Bronchitis (ICD-10 - J40) 02/08/2025 Lumbar back pain (ICD-10 - M54.50) 09/13/2024 Current smoker (ICD-10 - F17.200) 09/13/2024 Osteopenia (ICD-10 - M85.80) 02/08/2025 Myalgia, unspecified site (ICD-10 - M79.10) 02/08/2025 Polyarthralgia (ICD-10 - M25.50) 09/13/2024 BMI 22.0-22.9, adult (ICD-10 - Z68.22) 02/08/2025 Osteopenia (ICD-10 - M85.80) Plan Of Treatment Pending Test Test Name Order Date Bone density 01/27/2023 CXR 03/07/2025 CBC Fingerstick (in house) 03/07/2025 xLC-Glycohemoglobin (GHb),Total 09/02/19 22 H-CBC 10/09/2021 H-Sputum Culture with Gram Stain 025 P-BNP (Brain Natriuretic Peptide) 2023 Insurance Providers Payer Name Payer Address Payer Phone Subscriber Number Group Number Insured Name Patient Relationship to Insured Coverage Start Date Coverage End Date [employer] [address] [address] [place], [place] [id number] MICHAEL DEL CASTILLO Self - patient is [...]
== END 2025-03-07 23:59 | disposition home or self-care (01) ==
LOC: RAD 11:01
PROVIDERS: PCP Physician Assistant; Visit Provider Physician Assistant
DX: J18.9 Pneumonia, unspecified organism (principal)
CPT/HCPCS: 71046

== ENCOUNTER 2025-05-13 09:06 | Outpatient (CLI) | payer MEDICARE, SELFPAY ==
--- OUTSIDE RECORDS SUMMARY | 2025-02-08 06:15 | XMS_ITS ---
Author Organization [facility] Address [address] [place] [id number] Care Team Providers Care Web Master Name Role Phone Ector Chester Primary Care Provider Marsha Hernandez Unavailable [phone] Toya Johnson Unavailable [phone] Allergies Allergen (clinical drug ingredient) Drug/Non Drug Allergy documented on EMR Reaction Allergy Type Onset Date Status Substance with penicillin structure and antibacterial mechanism of action (substance) Penicillins Unknown Drug Allergy Active Results Component Value Reference Range Notes CBC Fingerstick (in house) Reviewed date:02/10/2025 11:22:55 PM Interpretation: Performing Lab: Notes/Report: wbc 18.1 3.5 - 10 lym 16.1 15 - 50 mid 5.0 2 - 15 gran 78.9 35 - 80 rbc 4.71 3.5 - 5.5 hgb 13.7 11.5 - 16.5 hct 42.1 35 - 55 mcv 89.3 75 - 100 mch 29.1 25 - 35 mchc 32.6 31 - 38 plat 298 100 - 400 Glycohemoglobin A1c (in hous e) Reviewed date:02/14/2025 02:50:42 PM Interpretation:6.0% Performing Lab: Notes/Report: 6.0% glycohemoglobin 6.0% 5 - 6.5 % P-Comprehensive Metabolic Pa lito (CMP) Reviewed date:02/14/2025 02:50:42 PM Interpretation:Na 130, Chlor 92, Glu 101, Alk Phos 144, A/G 1.1 Performing Lab: Notes/Report: Test performed by [facility], [facility] [address] [place] [address] , [place] [address] Apolinar Calvillo MD, Facilities Mechanical Design Engineer CLIA: [id number] Sodium 130 135-145 mmol/L Potassium 4.8 3.5-5.3 mmol/L Chloride 92 97-108 mmol/L CO2 25 22-32 mmol/L Glucose 101 65-99 mg/dL BUN 8 8-23 mg/dL Creatinine 0.53 0.50-1.00 mg/dL Calcium 9.8 8.6-10.4 mg/dL eGFR by Creatinine 91 >59 mL/min/1.73m2 Protein 7.7 6.0-8.3 g/dL Albumin 4.0 3.5-5.3 g/dL Alkaline Phosphatase 144 35-121 IU/L ALT (SGPT) 7 <5-47 IU/L AST (SGOT) 15 <5-40 IU/L Bilirubin, Total 0.3 <0.2-1.2 mg/dL A/G Ratio 1.1 1.1-2.5 P-Ferritin Reviewed date:02/14/2025 02:50:42 PM Interpretation:Normal Performing Lab: Notes/Report: Test performed by [facility] [address] [place] [address] , [place] [address] Apolinar Calvillo MD, Facilities Mechanical Design Engineer CLIA: [id number] Ferritin 109.0 13.0-301.0 ng/mL P-T4 Free (thyroxine) Reviewed date:02/14/2025 02:50:42 PM Interpretation:Normal Performing Lab: Notes/Report: Test performed by [facility] [address] [place] [address] , [facility] [place] [address] Apolinar Calvillo MD, Facilities Mechanical Design Engineer CLIA: [id number] Thyroxine Free (free T4) 1.46 0.86-1.76 ng/dL P-Iron Reviewed date:02/14/2025 02:50:42 PM Interpretation:38 Performing Lab: Notes/Report: Test performed by [facility] [address] [place] [address] , [facility] [place] [id number] Apolinar Calvillo MD, Facilities Mechanical Design Engineer CLIA: [id number] Iron 38 37-145 ug/dL P-Lipid Panel Reviewed date:02/14/2025 02:50:42 PM Interpretation:Normal Performing Lab: Notes/Report: Test performed by [facility] [address] [facility] , [address], [place] [address] Apolinar Calvillo MD, Facilities Mechanical Design Engineer CLIA: [id number] Cholesterol 149 <200 mg/dL Triglycerides 122 <150 mg/dL HDL Cholesterol 41 >39 mg/dL Cholesterol / HDL Ratio 3.63 0.00-4.44 Ratio Non-HDL Cholesterol 108 <130 mg/dL LDL Cholesterol (Calculation) 84 <130 mg/dL LDL Cholesterol Levels* Less than 100 mg/dL Optimal 100 to 129 mg/dL Near Optimal/ Above Optimal 130 to 159 mg/dL Borderline High 160 to 189 mg/dL High 190 mg/dL and above Very High * Categories as recommended by the 2004 ATPIII guidelines LDL/HDL Ratio 2.0 <3.3 Ratio LDL Cholesterol Patient History Test Date: 01/20/2024 LDL Results: 88 Units: mg/dL % Change: -8% Test Date: 09/13/2024 LDL Results: 114 Units: mg/dL % Change: +29% Test Date: 02/08/2025 LDL Results: 84 Units: mg/dL % Change: -26% P-TSH Reviewed date:02/14/2025 02:50:42 PM Interpretation:Normal Performing Lab: Notes/Report: Test performed by [facility], [address] , [address], [place] [address] Apolinar Calvillo MD, Facilities Mechanical Design Engineer CLIA: [id number] TSH 0.58 0.43-5.25 mU/L CXR Reviewed date:02/14/2025 02:50:42 PM Interpretation:Pneumonia Performing Lab: Notes/Report: Pneumonia REASON FOR VISIT bloodwork med check, congestion Medications Medication SIG (Take, Route, Frequency, Duration) Notes Start Date End Date Status Meloxicam 7.5 MG 1 tablet Orally Once a day; Duration: 90 days 09/13/2024 Active Levothyroxine Sodium 75 MCG 1 tab(s) orally once a day; Duration: 90 days Active Lipitor 40 MG 1 tab(s) orally once a day; Duration: 90 days Active Benzonatate 200 MG 1 capsule Orally Three times a day, prn 07/08/2023 Active Zithromax Z-Jb 250 MG as directed Orally 09/21/2023 Not-Taking Zithromax Z-Jb 250 MG as directed Orally 02/08/2025 Active Montelukast Sodium 10 MG 1 tab(s) orally once a day; Duration: 90 days Active Albuterol Sulfate HFA 108 (90 Base) MCG/ACT 1 puff as needed Inhalation every 4 hrs, prn 07/08/2023 Active Omeprazole 40 MG TAKE 1 CAPSULE BY MOUTH EVERY DAY; Duration: 90 days Active Cyclobenzaprine HCl 5 MG 1 tablet Orally three times a day as needed 09/21/2023 Not-Taking Flonase Allergy Relief 50 MCG/ACT 1 spray(s) in each nostril once a day; Duration: 30 day(s) 08/12/2022 Active WALKER WITH WHEELS AND SEAT DIRECTED NEEDED R26.89R53.81 *Please review for potential replacement for e-prescription and drug interaction check* 06/03/2022 Active Primidone 50 MG 1/2 tab orally qhs; Duration: 90 days Active Symbicort 160-4.5 MCG/ACT INHALE 2 PUFFS BY MOUTH TWICE DAILY Active ProAir Digihaler 108 (90 Base) MCG/ACT 1-2 puff(s) inhaled 4 times a day as needed Active Benzonatate 200 MG 1 capsule as needed Orally Three times a day, prn 02/08/2025 Active Vital Signs Blood pressure systolic 130 mm Hg 02/09/20 25 Blood pressure diastolic 72 mm Hg 025 Heart Rate 90 /min 02/08/2025 Height 63 in 02/08/2025 Weight 000 lbs 02/08/2025 Encounters Encounter Location Date Provider Diagnosis [facility] [address] [id number] 02/08/2025 Toya Johnson Acquired hypothyroid ism E03.9 ; Essential hypertension I10 ; Mixed hyperlipidemia E78.2 ; Chronic obstructive pulmonary disease, unspecified COPD type J44.9 ; Iron deficiency E61.1 ; Environmental allergies Z91.09 ; Impaired fasting glucose R73.01 ; Benign essential tremor G25.0 ; Current smoker F17.200 ; Bronchitis J40 ; Lumbar back pain M54.50 ; Myalgia, unspecified site M79.10 ; Polyarthralgia M25.50 and Osteopenia M85.80 Assessments Encounter Date Diagnosis (ICD Code) Assessment Notes Treatment Notes Treatment Clinical Notes Section Notes 02/08/2025 Acquired hypothyroidism (ICD-10 - E03.9) 02/08/2025 Essential hypertension (ICD-10 - I10) 02/08/2025 Mixed hyperlipidemia (ICD-10 - E78.2) 02/08/2025 Chronic obstructive pulmonary disease, unspecified COPD type (ICD-10 - J44.9) 02/08/2025 Iron deficiency (ICD-10 - E61.1) 02/08/2025 Environmental allergies (ICD-10 - Z91.09) 02/08/2025 Impaired fasting glucose (ICD-10 - R73.01) 02/08/2025 Benign essential tremor (ICD-10 - G25.0) 02/08/2025 Current smoker (ICD-10 - F17.200) 02/08/2025 Bronchitis (ICD-10 - J40) 02/08/2025 Lumbar back pain (ICD-10 - M54.50) 02/08/2025 Myalgia, unspecified site (ICD-10 - M79.10) 02/08/2025 Polyarthralgia (ICD-10 - M25.50) 02/08/2025 Osteopenia (ICD-10 - M85.80) Plan Of Treatment Medication Medication Name Sig Start Date Stop Date Notes Zithromax Z-Jb 250 MG as directed Orally 02/08/2025 Montelukast Sodium 10 MG 1 tab(s) orally once a day; Duration: 90 days Symbicort 160-4.5 MCG/ACT INHALE 2 PUFFS BY MOUTH TWICE DAILY Benzonatate 200 MG 1 capsule as needed Orally Three times a day, prn 02/08/2025 Next Appt Details Follow Up: via phone to repo rt test results, Reason: Provider Name:Toya juarez, 10/24/2025 09:00:00 AM, [address], [address], [place], [phone], Progress Notes * MICHAEL DEL CASTILLODOB:1940 (84 yo F)Acc No.[id number]:02/08/2025 Progress Notes Patient: Vinod MICHAEL CASTILLO Provider: RADAMES Brito :1940 A ge:84 Y S ex:Female Date:02/08/2025 Address:[address] [place] [address] E[place] POTTER [id number] Pcp:Chester Barney Subjective: * Chief Complaints: * 1 . Bloodwork med check, congestion. * HPI: E NT/respiratory: 84 year old female presents with c/o nasal congestion. H PI: c/o Patient is here today for P t is here today for a medication check and to get refills. G astroenterology: c/o Diarrhea. c/o gas. * ROS: D ERMATOLOGY: no R catie. [...] ouside US: yes. * Medications: T aking Primidone 50 MG Tablet 1/2 tab orally [...] times a day as needed , Taking Omeprazole 40 MG Capsule Delayed Release TAKE 1 CAPSULE BY MOUTH EVERY DAY , Taking Albuterol Sulfate HFA 108 (90 Base) MCG/ACT Aerosol Solution 1 puff as needed Inhalation every 4 hrs, prn , Taking Levothyroxine Sodium 75 MCG Tablet 1 tab(s) orally once a day , Taking Symbicort 160-4.5 MCG/ACT Aerosol INHALE 2 PUFFS BY MOUTH TWICE DAILY , Taking Meloxicam 7.5 MG Tablet 1 tablet Orally Once a day , Taking Benzonatate 200 MG Capsule 1 capsule Orally Three times a day, prn , Taking Lipitor 40 MG Tablet 1 tab(s) orally once a day , Taking Montelukast Sodium 10 MG Tablet 1 tab(s) orally once a day , Not- Taking Cyclobenzaprine HCl 5 MG Tablet 1 tablet Orally three times a day as needed , Not-Taking Zithromax Z-Jb 250 MG Tablet as directed Orally , Medication List reviewed and reconciled with the patient * Allergies: P enicillins. Objective: * Vitals: W t: 000, Temp: 97.8, BP: 130/72, HR: 90, O2 Sat: 95% on RA, Nurse: analilia, Ht: 63. * Examination: G eneral Examination: General Appearance: N AD. H EENT: u nremarkable.?Oral cavity: n o lesions, mucosa moist and WNL, no erythema. N [place]: s upple, no lymphadenopathy. C hest: n ormal shape and expansion. H eart: R SR. L ungs: b ilateral wheezes, no rales. A bdomen: b owel sounds present, soft and nontender, no organomegaly or masses, no guarding or rigidity. N eurologic Exam: I ntact, gait normal. S kin: normal, no rash. P eripheral pulses: n ormal (2+) bilaterally. E xtremities: n o leg edema. Assessment: * Assessment: 1. A cquired hypothyroidism - E03.9 (Primary) 2 . E ssential hypertension - I10 3 . M ixed hyperlipidemia - E78.2 4 . C hronic obstructive pulmonary disease, unspecified COPD type - J44.9 5 . I mayela deficiency - E61.1 6 . E nvironmental allergies - Z91.09 7 . I mpaired fasting glucose - R73.01 8 . B enign essential tremor - G25.0 9 . C urrent smoker - F17.200 1 0. B ronchitis - J40 1 1. L umbar back pain - M54.50 1 2. M yalgia, unspecified site - M79.10 1 3. P olyarthralgia - M25.50 1 4. O steopenia - M85.80 Plan: * Treatment: Value Reference Range T hyroxine Free (free T4) 1.46 0.86-1.76 - ng/d L * Jaelyn Gillespie 02/14/2025 02: 50:24 PM EDT > See phone encounter ?LAB: P-TSH (Collection Date & Time - 02/08/2025 09:57 AM)?Normal* Value Reference Range T SH 0.58 0.43-5.25 - mU/L * Jaelyn Gillespie 02/14/2025 02: 50:24 PM EDT > See phone encounter 2.?Essential hypertension?LAB: P-Comprehensive Metabolic Panel (CMP) (Collection Date & Time - 02/08/2025 09:57 AM)?Na 130, Chlor 92, Glu 101, Alk Phos 144, A/G 1.1* Value Reference Range A /G Ratio 1.1 L 1.1-2.5 - * A lbumin 4.0 3.5-5.3 - g/dL * A lkaline Phosphatase 144 H 35-121 - IU/L * A LT (SGPT) 7 <5-47 - IU/L * A ST (SGOT) 15 <5-40 - IU/L * B ilirubin, Total 0.3 <0.2-1.2 - mg/dL * B UN 8 8-23 - mg/dL * C alcium 9.8 8.6-10.4 - mg/dL * C hloride 92 L 97-108 - mmol/L * C O2 25 22-32 - mmol/L * C reatinine 0.53 0.50-1.00 - mg/dL * G lucose 101 H 65-99 - mg/dL * P otassium 4.8 3.5-5.3 - mmol/L * S odium 130 L 135-145 - mmol/L * P rotein 7.7 6.0-8.3 - g/dL * e GFR by Creatinine 91 >59 - mL/min/1.73m2 * Jaelyn Gillespie 02/14/2025 02: 50:24 PM EDT > See phone encounter 3.?Mixed hyperlipidemia?LAB: P-Lipid Panel (Collection Date & Time - 02/08/2025 09:57 AM)?Normal* Value Reference Range C holesterol / HDL Ratio 3.63 0.00-4.44 - Ratio * C holesterol 149 <200 - mg/dL * H DL Cholesterol 41 >39 - mg/dL * L DL Cholesterol (Calculation) 84 <130 - mg/d L * L DL/HDL Ratio 2.0 <3.3 - Ratio * N on-HDL Cholesterol 108 <130 - mg/dL * T riglycerides 122 <150 - mg/dL * Jaelyn Gillespie 02/14/2025 02: 50:24 PM EDT > See phone encounter 4.?Chronic obstructive pulmonary disease, unspecified COPD type? Refill Symbicort Aerosol, 160-4.5 MCG/ACT, INHALE 2 PUFFS BY MOUTH TWICE DAILY, 1, Refills 5.? 5.?Iron deficiency?LAB: P-Ferritin (Collection Date & Time - 02/08/2025 09:57 AM)?Normal* Value Reference Range F erritin 109.0 13.0-301.0 - ng/mL * Jose MiguelJaelyn 02/14/2025 02: 50:24 PM EDT > See phone encounter ?LAB: P-Iron (Collection Date & Time - 02/08/2025 09:57 AM)?38* Value Reference Range I mayela 38 37-145 - ug/dL * Jose Miguel Jaelyn 02/14/2025 02: 50:24 PM EDT > See phone encounter 6.?Environmental allergies? Refill Montelukast Sodium Tablet, 10 MG, 1 tab(s), orally, once a day, 90 days, 90, Refills 1.??7.?Impaired fasting glucose?LAB: Glycohemoglobin A1c (in house) (Collection Date & Time - 02/08/2025)? 6.0%* Value Reference Range g lycohemoglobin 6.0% 5 - 6.5 % * Lisette Ferguson 02/08/2025 12:1 1:57 PM EDT > Jaelyn Gillespie 02/14/2025 02:50:24 PM EDT > See phone encounter 8.?Bronchitis? Start Zithromax Z-Jb Tablet, 250 MG, as directed, Orally, 1, Refills 0;?Start Benzonatate Capsule, 200 MG, 1 capsule as needed, Orally, Three times a day, prn, 30, Refills 2.?LAB: CBC Fingerstick (in house) (Collection Date & Time - 02/08/2025)* Value Reference Range w bc 18.1 3.5 - 10 * l ym 16.1 15 - 50 * m id 5.0 2 - 15 * g ran 78.9 35 - 80 * r bc 4.71 3.5 - 5.5 * h gb 13.7 11.5 - 16.5 * h ct 42.1 35 - 55 * m cv 89.3 75 - 100 * m ch 29.1 25 - 35 * m chc 32.6 31 - 38 * p lat 298 100 - 400 * Lisette Ferguson 02/08/2025 10:3 2:19 AM EDT > Provider reviewed results while patient in office. ?Imaging: CXR (Performed Date - 02/08/2025)?Pneumonia* Jose Miguel Jaelyn 02/14/2025 02: 50:24 PM EDT > See phone encounter * Procedure Codes: G 2211 Complex e/[place] [address] CBC WITH AUTO DIFF, 08013 GLYCATED HEMOGLOBIN TEST, Modifiers: QW , G8783 BP SCR PRFRM RCMDD DEFIND SCR INTVL, G8752 MOST RECENT SYSTOLIC BP < 140MM HG, G8754 MOST RECENT DIASTOLIC BP < 90MM HG, 3044F HG A1C LEVEL LT 7.0% * Follow Up: v ia phone to report test results * Images: Billing Information: * Visit Code: 47012 Office Visit, Est Pt., Level 4. * Procedure Codes: G2211 Complex e/[place] [address] CBC WITH AUTO DIFF. 63116 GLYCATED HEMOGLOBIN TEST. Modifiers: QW G8783 BP SCR PRFRM RCMDD DEFIND SCR INTVL. G8752 MOST RECENT SYSTOLIC BP < 140MM HG. G8754 MOST RECENT DIASTOLIC BP < 90MM HG. 3044F HG A1C LEVEL LT 7.0%. * Electronic signature of RADAMES Canas on 05/13/2025 at 09:32 AM EDT Sign off status: Pending * Provider: RADAMES Brito Date: 0 02/08/2025 Generated for Printi ng/Faxing/eTransmitting on: 0 05/13/2025 09:32 AM EDT History and Physical Notes * HPI (History of Present Illness) Category Sub-Category Detail Notes Category Not es ENT/respiratory nasal congestion Gastroenterology Diarrhea gas HPI Patient is here today for Pt is here today for a medication check and to get refills Examination Category Sub-Category Detail Notes Category Not es General Examination HEENT: unremarkable Heart: RSR Lungs: bilateral wheezes, n o rales Abdomen: bowel sounds present , soft and nontender, no organomegaly or masses, no guarding or rigidity Extremities: no leg edema General Appearance: NAD Skin: normal, no rash Neurologic Exam: Intact, gait normal Neck: supple, no lymphaden opathy Oral cavity: no lesions, mucosa m oist and WNL, no erythema Peripheral pulses: normal (2+) bilatera lly Chest: normal shape and exp ansion
--- OUTSIDE RECORDS SUMMARY | 2025-02-21 06:15 | XMS_ITS ---
Author Organization [facility] Address [address] [facility] [address] [place] [phone] Care Team Providers Care Software Development Leader Name Role Phone Chester Barney Primary Care Provider [phone] Marsha Hernandez Unavailable [phone] Toya Johnson Unavailable [phone] Allergies Allergen (clinical drug ingredient) Drug/Non Drug [...] qhs; Duration: 90 days Active Vital Signs Blood pressure systolic 130 mm Hg 02/22/20 25 Blood pressure diastolic 60 mm Hg 025 Heart Rate 65 /min 02/21/2025 Height 63 in 02/21/2025 Weight 117.4 lbs 02/21/2025 BMI 20.79 kg/m2 02/21/2025 Encounters Encounter Location Date Provider Diagnosis [facility] [address] [id number] 02/21/2025 Toya Crowdy Pneumonia of left lo [...] Appt Details Follow Up: 1 Week, Reason: Provider Name:Toya juarez, 10/24/2025 09:00:00 AM, [address] [facility] [address] [facility], [address] , [place], [place], [id number], Progress Notes * MICHAEL DEL CASTILLODOB:1940 (84 yo F)Acc No.[id number]:02/21/2025 Patient: Vinod CASTILLO MICHAEL Gould Provider: RADAMES Brito :1940 A ge:84 Y S ex:Female Date:02/21/2025 Address:[address] [place] [id number] Pcp:Chester Barney Subjective: * Chief Complaints: * [...] L ymphadenopathy - R59.1 3 . B [place] 20.0-20.9, adult - Z68.20 ? Plan: * [...] G 2211 Complex e/[place], [address] CAPILLARY BLOOD DRAW, 51078 CBC WITH AUTO DIFF, G8783 BP SCR PRFRM RCMDD DEFIND SCR INTVL, G8752 MOST RECENT SYSTOLIC BP < 140MM HG, G8754 MOST RECENT DIASTOLIC BP < 90MM HG, G8420 BMI<30 AND >=22 CALC & DOCU * Follow Up: 1 Week * Images: Billing Information: * Visit Code: 32460 Office Visit, Est Pt., Level 3. * Procedure Codes: G2211 Complex e/[place]. [address] CAPILLARY BLOOD DRAW. 79163 CBC WITH AUTO DIFF. G8783 BP SCR PRFRM RCMDD DEFIND SCR INTVL. G8752 MOST RECENT SYSTOLIC BP < 140MM HG. G8754 MOST RECENT DIASTOLIC BP < 90MM HG. G8420 BMI<30 AND >=22 CALC & DOCU. * Electronic signature of RADAMES Canas on 05/13/2025 at 09:33 AM EDT Sign off status: Pending * Provider: RADAMES Brito Date: 0 02/21/2025 Generated for Larry santa/Samantha/eTransmitting on: 0 05/13/2025 09:33 AM EDT History and Physical Notes * [...]
--- OUTSIDE RECORDS SUMMARY | 2025-02-28 06:15 | XMS_ITS ---
Author Organization [facility] Address [address] [place] [id number] Care Team Providers Care Manager Program Name Role Phone Chester Barney Primary Care Provider Marsha Hernandez Unavailable [phone] Toya Johnson Unavailable [phone] Allergies Allergen (clinical drug ingredient) Drug/Non Drug [...] days Active Vital Signs Blood pressure systolic 132 mm Hg 02/29/20 25 Blood pressure diastolic 68 mm Hg 025 Heart Rate 76 /min 02/28/2025 Height 63 in 02/28/2025 Weight 116.8 lbs 02/28/2025 BMI 20.69 kg/m2 02/28/2025 Encounters Encounter Location Date Provider Diagnosis [facility] [address], [place] [phone] 02/28/2025 Toya Crowdy Pneumonia of left lo wer lobe due to infectious organism J18.9 and BMI 20.0-20.9, adult Z68.20 Assessments Encounter [...] CXR if still elevated at that time. 02/28/2025 BMI 20.0-20.9, adult (ICD-10 - Z68.20) Plan [...] Follow Up: 1 Week, Reason: Provider Name:Toya Eleno Travon y, 10/24/2025 09:00:00 AM, [address], [place], [place], [id number], Progress Notes * MICHAEL DEL CASTILLO BryannaDOB:1940 (84 yo F)Acc No.[id number]:02/28/2025 Progress Notes Patient: MICHAEL LONGORIA Provider: RADAMES Brito :1940 A ge:84 Y S ex:Female Date:02/28/2025 Address:[address] [place] [address] [facility] [id number] Pcp:Chester Barney Subjective: * Chief Complaints: * [...] 76, O2 Sat: 92% on RA, Nurse: pe, Ht: 63, BMI:20.69. * Examination: G eneral [...] infectious organism - J18.9 (Primary) 2 . B RI 20.0-20.9, adult - Z68.20 Plan: * Treatment: Value Reference Range w [...] 161 100 - 400 * Josette Flores 02/28/2025 11: 04:09 AM EDT > Notes: Lymph node has improved. Lung sounds have improved. WBC is still elevated but she has 5 moredays of abx. Will recheck a CBC in 1 week. May need a repeat CXR if still elevated at that time. ? * Procedure Codes: G 2211 Complex e/[place] [address] CBC WITH AUTO DIFF, 12804 VENIPUNCT, ROUTINE*, G8420 BMI<30 AND >=22 CALC & DOCU, G8783 BP SCR PRFRM RCMDD DEFIND SCR INTVL, G8752 MOST RECENT SYSTOLIC BP < 140MM HG, G8754 MOST RECENT DIASTOLIC BP < 90MM HG * Follow Up: 1 Week * Images: Billing Information: * Visit Code: 57617 Office Visit, Est Pt., Level 3. * Procedure Codes: G2211 Complex e/[place]. [address] CBC WITH AUTO DIFF. 84046 VENIPUNCT, ROUTINE*. G8420 BMI<30 AND >=22 CALC & DOCU. G8783 BP SCR PRFRM RCMDD DEFIND SCR INTVL. G8752 MOST RECENT SYSTOLIC BP < 140MM HG. G8754 MOST RECENT DIASTOLIC BP < 90MM HG. * Electronic signature of RADAMES Canas on 05/13/2025 at 09:33 AM EDT Sign off status: Pending * Provider: RADAMES Brito Date: 02/28/2025 Generated for Larry santa/Samantha/eTdavidsmitting on: 05/13/2025 09:33 AM EDT History and Physical Notes * Examination Category Sub-Category Detail Notes Category Not es General Examination HEENT: unremarkable Heart: RSR Lungs: faint expiratory whe ezes, no rales, better air movement General Appearance: NAD Oral cavity: no lesions, mucosa m oist and WNL, no erythema Chest: normal shape and exp ansion
--- OUTSIDE RECORDS SUMMARY | 2025-03-07 06:00 | XMS_ITS ---
Author Organization [facility] Address [address] [place] [phone] Care Team Providers Care Clinical Data Analyst Name Role Phone Chester Barney Primary Care Provider Marsha Hernandez Unavailable [phone] Toya Johnson Unavailable [phone] Allergies Allergen (clinical drug ingredient) Drug/Non Drug Allergy documented on EMR Reaction Allergy Type Onset Date Status Substance with penicillin structure and antibacterial mechanism of action (substance) Penicillins Unknown Drug Allergy Active Results Component Value Reference Range Notes CBC Fingerstick (in house) Reviewed date:03/07/2025 03:00:04 PM Interpretation: Performing Lab: Notes/Report: wbc 15.8 3.5 - 10 lym 11.0 15 - 50 mid 4.1 2 - 15 gran 84.9 35 - 80 rbc 4.79 3.5 - 5.5 hgb 14.2 11.5 - 16.5 hct 43.7 35 - 55 mcv 91.2 75 - 100 mch 29.6 25 - 35 mchc 32.4 31 - 38 plat 436 100 - 400 CXR Reviewed date:03/15/2025 11:56:12 AM Interpretation:Negative Performing Lab: Notes/Report: Negative REASON FOR VISIT 6 months Medications Medication SIG (Take, Route, Frequency, Duration) Notes Start Date End Date Status Lipitor 40 MG 1 tab(s) orally once a day; Duration: 90 days Active Symbicort 160-4.5 MCG/ACT INHALE 2 PUFFS BY MOUTH TWICE DAILY Active Meloxicam 7.5 MG 1 tablet Orally Once a day; Duration: 90 days 09/13/2024 Active Montelukast Sodium 10 MG 1 tab(s) orally once a day; Duration: 90 days Active Benzonatate 200 MG 1 capsule as needed Orally Three times a day, prn 02/08/2025 Active Doxycycline Monohydrate 100 MG 1 capsule Orally twice a day; Duration: 10 days 03/07/2025 Active Levothyroxine Sodium 75 MCG 1 tab(s) orally once a day; Duration: 90 days Active Omeprazole 40 MG TAKE 1 CAPSULE BY MOUTH EVERY DAY; Duration: 90 days Active Albuterol Sulfate HFA 108 (90 Base) MCG/ACT 1 puff as needed Inhalation every 4 hrs, prn 07/08/2023 Active ProAir Digihaler 108 (90 Base) MCG/ACT 1-2 puff(s) inhaled 4 times a day as needed Active Flonase Allergy Relief 50 MCG/ACT 1 spray(s) in each nostril once a day; Duration: 30 day(s) 08/12/2022 Active Primidone 50 MG 1/2 tab orally qhs; Duration: 90 days Active WALKER WITH WHEELS AND SEAT DIRECTED NEEDED R26.89R53.81 *Please review for potential replacement for e-prescription and drug interaction check* 06/03/2022 Active Cefdinir 300 MG as directed Orally Two times a day; Duration: 10 days Active Vital Signs Blood pressure systolic 132 mm Hg 03/07/20 25 Blood pressure diastolic 60 mm Hg 025 Heart Rate 62 /min 03/07/2025 Height 63 in 03/07/2025 Weight 115 lbs 03/07/2025 BMI 20.37 kg/m2 03/07/2025 Encounters Encounter Location Date Provider Diagnosis [facility] [address], [place] [phone] 03/07/2025 Toya Crowdy Pneumonia of left lo wer lobe due to infectious organism J18.9 and BMI 20.0-20.9, adult Z68.20 Assessments Encounter Date Diagnosis (ICD Code) Assessment Notes Treatment Notes Treatment Clinical Notes Section Notes 03/07/2025 Pneumonia of left lower lobe due to infectious organism (ICD-10 - J18.9) WBC is still elevated. Will start on doxycycline and get a repeat CXR. 03/07/2025 BMI 20.0-20.9, adult (ICD-10 - Z68.20) Plan Of Treatment Medication Medication Name Sig Start Date Stop Date Notes Doxycycline Monohydrate 100 MG 1 capsule Orally twice a day; Duration: 10 days 03/07/2025 Treatment Notes Assessment Notes Pneumonia of left lower lobe due to infectious organism WBC is still elevated. Will start on doxycycline and get a repeat CXR. Next Appt Details Follow Up: via phone to repo rt test results, Reason: Provider Name:Toya Eleno juarez, 10/24/2025 09:00:00 AM, [address], [address], [place], [place], [id number], Progress Notes * MICHAEL DEL CASTILLO BryannaDOB:1940 (84 yo F)Acc No.[id number]:03/07/2025 Progress Notes Patient: MICHAEL LONGORIA Provider: RADAMES Brito :1940 A ge:84 Y S ex:Female Date:03/07/2025 Address:[address] [place] [address] [id number] Pcp:Chester Barney Subjective: * Chief Complaints: * 1 . 6 months. * HPI: C ardiology: Pt here for a f/u. Her cough has improved. She still has some SOA. * ROS: D ERMATOLOGY: no R catie. [...] directed Orally Two times a day , Medication List reviewed and reconciled with the patient * Allergies: P enicillins. Objective: * Vitals: W t: 115, Temp: 97.5, BP: 132/60, HR: 62, Nurse: pe, Ht: 63, BMI:20.37. * Examination: G eneral Examination: General Appearance: N AD. H EENT: u nremarkable.?Oral cavity: n o lesions, mucosa moist and WNL, no erythema. C hest: n ormal shape and expansion. H eart: R SR. L ungs: n o rales, better air movement. ? Assessment: * Assessment: 1. P neumonia of left lower lobe due to infectious organism - J18.9 (Primary) 2 . B MN 20.0-20.9, adult - Z68.20 Plan: * Treatment: Value Reference Range w bc 15.8 3.5 - 10 * l ym 11.0 15 - 50 * m id 4.1 2 - 15 * g ran 84.9 35 - 80 * r bc 4.79 3.5 - 5.5 * h gb 14.2 11.5 - 16.5 * h ct 43.7 35 - 55 * m cv 91.2 75 - 100 * m ch 29.6 25 - 35 * m chc 32.4 31 - 38 * p lat 436 100 - 400 * Soila Salinas 03/07/2025 1 0:54:22 AM EDT > Provider reviewed results while patient in office. ?Imaging: CXR (Performed Date - 03/07/2025)?Negative* Jaelyn Gillespie 03/15/2025 11: 18:14 AM EDT > no pneumonia presentLisette Ferguson 03/15/2025 11:55:58 AM EDT >pt informed Notes: WBC is still elevated. Will start on doxycycline and get a repeat CXR.?? * Procedure Codes: G 2211 Complex e/[place], [address] CAPILLARY BLOOD DRAW, 94476 CBC WITH AUTO DIFF, G8783 BP SCR PRFRM RCMDD DEFIND SCR INTVL, G8752 MOST RECENT SYSTOLIC BP < 140MM HG, G8754 MOST RECENT DIASTOLIC BP < 90MM HG * Follow Up: v ia phone to report test results * Images: Billing Information: * Visit Code: 68337 Office Visit, Est Pt., Level 3. * Procedure Codes: G2211 Complex e/[place]. [address] CAPILLARY BLOOD DRAW. 01650 CBC WITH AUTO DIFF. G8783 BP SCR PRFRM RCMDD DEFIND SCR INTVL. G8752 MOST RECENT SYSTOLIC BP < 140MM HG. G8754 MOST RECENT DIASTOLIC BP < 90MM HG. * Electronic signature of RADAMES Canas on 05/13/2025 at 09:33 AM EDT Sign off status: Pending * Provider: RADAMES Brito Date: 03/07/2025 Generated for Larry santa/Samantha/Sofie on: 0 05/13/2025 09:33 AM EDT History and Physical Notes * Examination Category Sub-Category Detail Notes Category Not es General Examination HEENT: unremarkable Heart: RSR Lungs: no rales, better air movement General Appearance: NAD Oral cavity: no lesions, mucosa m oist and WNL, no erythema Chest: normal shape and exp ansion
--- OUTSIDE RECORDS SUMMARY | 2025-04-19 05:15 | XMS_ITS ---
[facility] [address] [place] [id number] Care Team Providers Care Institutional Cook Name Role Phone Isa Barneyian Primary Care Provider Marsha Hernandez Unavailable [phone] JimToya peres Unavailable [phone] Allergies Allergen (clinical drug ingredient) Drug/Non Drug Allergy documented on EMR Reaction Allergy Type Onset Date Status Substance with penicillin structure and antibacterial mechanism of action (substance) Penicillins Unknown Drug Allergy Active Results Component Value Reference Range Notes CBC Venipuncture (in house) Reviewed date:04/19/2025 05:39:52 PM Interpretation: Performing Lab: Notes/Report: wbc 9.1 3.5 - 10 lymph 18.2 15 - 50 mid 5.7 2 - 15 gran 76.1 35 - 80 rbc 4.58 3.5 - 5.5 hgb 13.7 11.5 - 16.5 hct 40.6 35 - 55 mcv 88.6 75 - 100 mch 29.9 25 - 35 mchc 33.7 31 - 38 platlet 475 100 - 400 Glycohemoglobin A1c (in hous e) Reviewed date:05/02/2025 02:13:47 PM Interpretation:5.8% Performing Lab: Notes/Report: 5.8% glycohemoglobin 5.8% 5 - 6.5 % P-Comprehensive Metabolic Pa lito (CMP) Reviewed date:05/02/2025 02:13:47 PM Interpretation: Performing Lab: Notes/Report: Test performed by [facility] , [address], [place] [address] Apolinar Calvillo MD, Gym Instructor CLIA: [id number] Sodium 134 135-145 mmol/L Potassium 5.3 3.5-5.3 mmol/L Chloride 97 97-108 mmol/L CO2 27 20-32 mmol/L Glucose 93 65-99 mg/dL BUN 12 8-23 mg/dL Creatinine 0.59 0.50-1.00 mg/dL Calcium 9.5 8.6-10.4 mg/dL eGFR by Creatinine 89 >59 mL/min/1.73m2 Protein 6.9 6.0-8.3 g/dL Albumin 3.8 3.5-5.3 g/dL Alkaline Phosphatase 116 35-121 IU/L ALT (SGPT) 8 <5-47 IU/L AST (SGOT) 17 <5-40 IU/L Bilirubin, Total 0.2 <0.2-1.2 mg/dL A/G Ratio 1.2 1.1-2.5 P-Ferritin Reviewed date:05/02/2025 02:13:47 PM Interpretation: Performing Lab: Notes/Report: Test performed by [facility] [address] , [address], [place] [address] Apolinar Calvillo MD, Gym Instructor CLIA: [id number] Ferritin 49.6 13.0-301.0 ng/mL P-T4 Free (thyroxine) Reviewed date:05/02/2025 02:13:47 PM Interpretation: Performing Lab: Notes/Report: Test performed by [facility] [address] [place] [address] , [place] [address] Apolinar Calvillo MD, Gym Instructor CLIA: [id number] Thyroxine Free (free T4) 1.36 0.86-1.76 ng/dL P-Iron Reviewed date:05/02/2025 02:13:47 PM Interpretation: Performing Lab: Notes/Report: Test performed by [facility] [address] [place] [address] Kala Powers, [address], [place] [address] Apolinar Calvillo MD, Gym Instructor CLIA: [id number] Iron 48 37-145 ug/dL P-Lipid Panel Reviewed date:05/02/2025 02:13:47 PM Interpretation: Performing Lab: Notes/Report: Test performed by [facility] [address] [place] [address] , [address], [place] [address] Apolinar Calvillo MD, Gym Instructor CLIA: [id number] Cholesterol 161 <200 mg/dL Triglycerides 98 <150 mg/dL HDL Cholesterol 55 >39 mg/dL Cholesterol / HDL Ratio 2.93 0.00-4.44 Ratio Non-HDL Cholesterol 106 <130 mg/dL LDL Cholesterol (Calculation) 86 <130 mg/dL LDL Cholesterol Levels* Less than 100 mg/dL Optimal 100 to 129 mg/dL Near Optimal/ Above Optimal 130 to 159 mg/dL Borderline High 160 to 189 mg/dL High 190 mg/dL and above Very High * Categories as recommended by the 2004 ATPIII guidelines LDL/HDL Ratio 1.6 <3.3 Ratio LDL Cholesterol Patient History Test Date: 09/13/2024 LDL Results: 114 Units: mg/dL % Change: +29% Test Date: 02/08/2025 LDL Results: 84 Units: mg/dL % Change: -26% Test Date: 04/19/2025 LDL Results: 86 Units: mg/dL % Change: +2% P-TSH Reviewed date:05/02/2025 02:13:47 PM Interpretation: Performing Lab: Notes/Report: Test performed by [facility] , [address], [place] [address] Apolinar Calvillo MD, Gym Instructor CLIA: [id number] TSH 0.76 0.43-5.25 mU/L REASON FOR VISIT Check Up and Labs, Needs labs & bone density screening Medications Medication SIG (Take, Route, Frequency, Duration) Notes Start Date End Date Status Symbicort 160-4.5 MCG/ACT INHALE 2 PUFFS BY MOUTH TWICE DAILY Active Montelukast Sodium 10 MG 1 tab(s) orally once a day; Duration: 90 days Active hydroCHLOROthiazide 12.5 MG 1 tablet in the morning Orally Once a day; Duration: 90 days 03/11/2025 Active Flonase Allergy Relief 50 MCG/ACT 1 [...] 4 times a day as needed Active WALKER WITH WHEELS AND SEAT DIRECTED NEEDED R26.89R53.81 *Please review for potential replacement for e-prescription and drug interaction check* 06/03/2022 Active Primidone 50 MG 1/2 tab orally qhs; Duration: 90 days Active Vital Signs Blood pressure systolic 124 mm Hg 04/19/20 25 Blood pressure diastolic 76 mm Hg 025 Heart Rate 63 /min 04/19/2025 Height 63 in 04/19/2025 Weight 112 lbs 04/19/2025 BMI 19.84 kg/m2 04/19/2025 Encounters Encounter Location Date Provider Diagnosis [facility] [address] [place], [place] [id number] 04/19/2025 Toya Johnson Acquired hypothyroid ism E03.9 ; Essential hypertension I10 ; Mixed hyperlipidemia E78.2 ; Chronic obstructive pulmonary disease, unspecified COPD type J44.9 ; Iron deficiency E61.1 ; Environmental allergies Z91.09 ; Impaired fasting glucose R73.01 ; Benign essential tremor G25.0 ; Polyarthralgia M25.50 ; Current smoker F17.200 ; Osteopenia M85.80 ; Weight loss R63.4 and Osteoporosis screening Z13.820 Assessments Encounter Date Diagnosis (ICD Code) Assessment Notes Treatment Notes Treatment Clinical Notes Section Notes 04/19/2025 Acquired hypothyroidism (ICD-10 - E03.9) 04/19/2025 Essential hypertension (ICD-10 - I10) 04/19/2025 Mixed hyperlipidemia (ICD-10 - E78.2) 04/19/2025 Chronic obstructive pulmonary disease, unspecified COPD type (ICD-10 - J44.9) 04/19/2025 Iron deficiency (ICD-10 - E61.1) 04/19/2025 Environmental allergies (ICD-10 - Z91.09) 04/19/2025 Impaired fasting glucose (ICD-10 - R73.01) 04/19/2025 Benign essential tremor (ICD-10 - G25.0) 04/19/2025 Polyarthralgia (ICD-10 - M25.50) 04/19/2025 Current smoker (ICD-10 - F17.200) 04/19/2025 Osteopenia (ICD-10 - M85.80) 04/19/2025 Weight loss (ICD-10 - R63.4) Patient states she has no appetite. Will try adding Boost daily or twice a day. Will f/u in 3 months for a weight check. 04/19/2025 Osteoporosis screening (ICD-10 - Z13.820) Plan Of Treatment Treatment Notes Assessment Notes Weight loss Patient states she h as no appetite. Will try adding Boost daily or twice a day. Will f/u in 3 months for a weight check. Next Appt Details Follow Up: 3 Months, Reason: Provider Name:Toya Eleno Travon juarez, 10/24/2025 09:00:00 AM, [address], [address], [place], [id number], Progress Notes * JULIO CESAR MICHAEL GouldDOB:1940 (84 yo F)Acc No.[id number]:04/19/2025 Progress Notes Patient: MICHAEL LONGORIA Provider: RADAMES Brito :1940 A ge:84 Y S ex:Female Date:04/19/2025 Address:[address] [place], [place] [address], [id number] Pcp:Chester Barney Subjective: * Chief Complaints: * 1 . Check Up and Labs. 2. Needs labs & bone density screening. * HPI: H PI: 84 year old female presents with c/o Patient is here today for?Pt is here today for a check up with fasting labs. C onstitutional: c/o weight loss P t is concerned with all the weight she has lost. Pt sts it is disgusting. Pt's son sts she has not been eating. C ardiology: c/o Dizziness. c/o Headaches P t c/o of having headaches and feeling very light headed as well. * ROS: D ERMATOLOGY: no R catie. [...] for e-prescription and drug interaction check*, Taking ProAir Digihaler 108 (90 Base) MCG/ACT Aerosol Powder Breath Activated 1-2 puff(s) inhaled 4 times a day as needed , Taking Omeprazole 40 MG Capsule Delayed Release TAKE 1 CAPSULE BY MOUTH EVERY DAY , Taking Albuterol Sulfate HFA 108 (90 Base) MCG/ACT Aerosol Solution 1 puff as needed Inhalation every 4 hrs, prn , Taking Meloxicam 7.5 MG Tablet 1 tablet Orally Once a day , Taking Lipitor 40 MG Tablet 1 tab(s) orally once a day , Taking Symbicort 160-4.5 MCG/ACT Aerosol INHALE 2 PUFFS BY MOUTH TWICE DAILY , Taking Flonase Allergy Relief 50 MCG/ACT Suspension 1 spray(s) in each nostril once a day , Taking Levothyroxine Sodium 75 MCG Tablet 1 tab(s) orally once a day , Taking Montelukast Sodium 10 MG Tablet 1 tab(s) orally once a day , Taking hydroCHLOROthiazide 12.5 MG Tablet 1 tablet in the morning Orally Once a day , Medication List reviewed and reconciled with the patient * Allergies: P enicillins. Objective: * Vitals: W t: 112, Temp: 97.7, BP: 124/76, HR: 63, O2 Sat: 100% on RA, Nurse: levy, Ht: 63, BMI:19.84. * Examination: G eneral Examination: General Appearance: N AD. H EENT: u nremarkable.?Oral cavity: n o lesions, mucosa moist and WNL, no erythema. N [place]: s upple, no lymphadenopathy. C hest: n ormal shape and expansion. H eart: R SR. L ungs: c lear to auscultation. A bdomen: b owel sounds present, soft and nontender. N eurologic Exam: I ntact, gait normal. S kin: n ormal, no rash. P eripheral pulses: n ormal [...] enign essential tremor - G25.0 9 . P olyarthralgia - M25.50 1 0. C urrent smoker - F17.200 1 1.?Osteopenia - M85.80 1 2. W eight loss - R63.4 1 3. O steoporosis screening - Z13.820 Plan: * Treatment: Value Reference Range T hyroxine Free (free T4) 1.36 0.86-1.76 - ng/d L * Toya Johnson 04/19/2025 0 9:48:49 AM EDT >room B, purple Toya Johnson 05/02/2025 02:10:53 PM EDT >see TE ?LAB: P-TSH (Collection Date & Time - 04/19/2025 09:05 AM)* Value Reference Range T SH 0.76 0.43-5.25 - mU/L * Toya Johnosn 04/19/2025 0 9:48:49 AM EDT >room eben Brock Crista S 05/02/2025 02:10:53 PM EDT >see TE 2.?Essential hypertension?LAB: P-Comprehensive Metabolic Panel (CMP) (Collection Date & Time - 04/19/2025 09:05 AM)* Value Reference Range A /G Ratio 1.2 1.1-2.5 - * A lbumin 3.8 3.5-5.3 - g/dL * A lkaline Phosphatase 116 35-121 - IU/L * A LT (SGPT) 8 <5-47 - IU/L * A ST (SGOT) 17 <5-40 - IU/L * B ilirubin, Total 0.2 <0.2-1.2 - mg/dL * B UN 12 8-23 - mg/dL * C alcium 9.5 8.6-10.4 - mg/dL * C hloride 97 97-108 - mmol/L * C O2 27 20-32 - mmol/L * C reatinine 0.59 0.50-1.00 - mg/dL * G lucose 93 65-99 - mg/dL * P otassium 5.3 3.5-5.3 - mmol/L * S odium 134 L 135-145 - mmol/L * P rotein 6.9 6.0-8.3 - g/dL * e GFR by Creatinine 89 >59 - mL/min/1.73m2 * Toya Johnson 04/19/2025 0 9:48:49 AM EDT >room Beben Crista S 05/02/2025 02:10:53 PM EDT >see TE ?LAB: CBC Venipuncture (in house) (Collection Date & Time - 04/19/2025)* Value Reference Range w bc 9.1 3.5 - 10 * l ymph 18.2 15 - 50 * m id 5.7 2 - 15 * g ran 76.1 35 - 80 * r bc 4.58 3.5 - 5.5 * h gb 13.7 11.5 - 16.5 * h ct 40.6 35 - 55 * m cv 88.6 75 - 100 * m ch 29.9 25 - 35 * m chc 33.7 31 - 38 * p latlet 475 100 - 400 * Lisette Ferguson 04/19/2025 11:4 3:49 AM EDT >Toya Johnson 04/19/2025 05:39:47 PM EDT > 3.?Mixed hyperlipidemia?LAB: P-Lipid Panel (Collection Date & Time - 04/19/2025 09:05 AM)* Value Reference Range C holesterol / HDL Ratio 2.93 0.00-4.44 - Ratio * C holesterol 161 <200 - mg/dL * H DL Cholesterol 55 >39 - mg/dL * L DL Cholesterol (Calculation) 86 <130 - mg/d L * L DL/HDL Ratio 1.6 <3.3 - Ratio * N on-HDL Cholesterol 106 <130 - mg/dL * T riglycerides 98 <150 - mg/dL * Toya Johnson 04/19/2025 0 9:48:49 AM EDT >room B, Toya Tinsley 05/02/2025 02:10:53 PM EDT >see TE 4.?Iron deficiency?LAB: P-Ferritin (Collection Date & Time - 04/19/2025 09:05 AM)* Value Reference Range F erritin 49.6 13.0-301.0 - ng/mL * Toya Johnson 04/19/2025 0 9:48:49 AM EDT >room B, Toya Tinsley 05/02/2025 02:10:53 PM EDT >see TE ?LAB: P-Iron (Collection Date & Time - 04/19/2025 09:05 AM)* Value Reference Range I mayela 48 37-145 - ug/dL * Toya Johnson 04/19/2025 0 9:48:49 AM EDT >room B, Toya Tinsley 05/02/2025 02:10:53 PM EDT >see TE 5.?Impaired fasting glucose?LAB: Glycohemoglobin A1c (in house) (Collection Date & Time - 04/19/2025)? 5.8%* Value Reference Range g lycohemoglobin 5.8% 5 - 6.5 % * Lisette Ferguson 04/19/2025 11:5 1:05 AM EDT > Toya Johnson 05/02/2025 02:10:53 PM EDT >see TE 6.?Weight loss? Notes: Patient states she has no appetite. Will try adding Boost daily or twice a day. Will f/u in 3 months for a weight check.?? * Procedure Codes: G 2211 Complex e/[place], [address] GLYCATED HEMOGLOBIN TEST, Modifiers: QW , 00690 CBC WITH AUTO DIFF, 3044F HG A1C LEVEL LT 7.0%, G8950 PREHTN/HTN BP DOC INDCD F/U DOC, G8752 MOST RECENT SYSTOLIC BP < 140MM HG, G8754 MOST RECENT DIASTOLIC BP < 90MM HG * Follow Up: 3 Months * Images: Billing Information: * Visit Code: 78183 Office Visit, Est Pt., Level 4. * Procedure Codes: G2211 Complex e/[place]. [address] GLYCATED HEMOGLOBIN TEST. Modifiers: QW 65866 CBC WITH AUTO DIFF. 3044F HG A1C LEVEL LT 7.0%. G8950 PREHTN/HTN BP DOC INDCD F/U DOC. G8752 MOST RECENT SYSTOLIC BP < 140MM HG. G8754 MOST RECENT DIASTOLIC BP < 90MM HG. * Electronic signature of RADAMES Canas on 05/13/2025 at 09:33 AM EDT Sign off status: Pending * Provider: RADAMES Brito Date: 04/19/2025 Generated for Larry santa/Samantha/eTransmitting on: 0 05/13/2025 09:33 AM EDT History and Physical Notes * HPI (History of Present Illness) Category Sub-Category Detail Notes Category Not es Cardiology Dizziness Headaches Pt c/o of having hea daches and feeling very light headed as well Constitutional weight loss Pt is concerned with all the weight she has lost. Pt sts it is disgusting. Pt's son sts she has not been eating HPI Patient is here today for Pt is here today for a check up with fasting labs Examination Category Sub-Category Detail Notes Category Not es General Examination HEENT: unremarkable Heart: RSR Lungs: clear to auscultatio n Abdomen: bowel sounds present , soft and nontender Extremities: no leg edema General Appearance: NAD Skin: normal, no rash Neurologic Exam: Intact, gait normal Neck: supple, no lymphaden opathy Oral cavity: no lesions, mucosa m oist and WNL, no erythema Peripheral pulses: normal (2+) bilatera lly Chest: normal shape and exp ansion
--- NOTE | 2025-05-13 09:10 | XR_ITS ---
FINAL REPORT CLINICAL HISTORY: SCREENING COMPARISON: None FINDINGS: Using L1-4, the bone mineral density of the spine is 0.824 g/cm2, corresponding to T-score of -2.0. Using the left hip, the bone mineral density of the femoral neck is 0.622 g/cm2, corresponding to a T-score of -2.6. Using the right hip, the bone mineral density of the femoral neck is 0.655 g/cm2, corresponding to a T-score of -2.4. NOTE: T-score: Standard deviation compared with peak bone mass of young adult mean. *Following the recommendations of the International Society of Bone densitometry, classification of hip BMD is based on the lower of two T-scores; total hip or femoral neck. IMPRESSION: Diminished bone mineral density of the lumbar spine and right hip consistent with osteopenia. Diminished bone mineral density of the left hip consistent with osteoporosis. Reviewed, Interpreted and Dictated by Samantha Branham MD Transcribed by Jazzy Sweeney Authenticated and [facility]
--- OUTSIDE RECORDS SUMMARY | 2025-05-13 09:34 | XMS_ITS | Patient Health Record ---
Author Organization [facility] Address [address] [facility] [address] [place] [id number] Care Team Providers Care Operative Supervisor Name Role Phone Chester Banrey Primary Care Provider Marsha Hernandez Unavailable [phone] Toya Johnson Unavailable [phone] Allergies Allergen (clinical drug ingredient) Drug/Non Drug [...] 1.1 Performing Lab: Notes/Report: Test performed by [facility] [employer] [address] [place] [address] , [place] [address] Apolinar Calvillo MD, Chief L[employer]arian [employer] CLIA: [id number] Sodium 130 135-145 mmol/L Potassium 4.8 3.5-5.3 [...] Interpretation:Normal Performing Lab: Notes/Report: Test performed by [facility] [address] [place] [address] , [place] [address] Apolinar Calvillo MD, Chief L[employer]arian [employer] CLIA: [id number] Ferritin 109.0 13.0-301.0 ng/mL P-T4 Free (thyroxine) Reviewed date:02/14/2025 02:50:42 PM Interpretation:Normal Performing Lab: Notes/Report: Test performed by [facility] [address] [place] [address] , [place] [address] Apolinar Calvillo MD, Chief L[employer]arian [employer] CLIA: [id number] Thyroxine Free (free T4) 1.46 0.86-1.76 ng/dL P-Iron Reviewed date:02/14/2025 02:50:42 PM Interpretation:38 Performing Lab: Notes/Report: Test performed by [facility] [address] [place] [address] , [address], [place] [address] Apolinar Calvillo MD, Chief Librarian [employer] CLIA: [id number] Iron 38 37-145 ug/dL P-Lipid Panel Reviewed date:02/14/2025 02:50:42 PM Interpretation:Normal Performing Lab: Notes/Report: Test performed by [facility] [address] [facility] , [address], [place] [address] Apolinar Calvillo MD, Chief Librarian [employer] CLIA: [id number] Cholesterol 149 <200 mg/dL Triglycerides 122 <150 [...] Interpretation:Normal Performing Lab: Notes/Report: Test performed by [facility] [address] [place], [place] [address] [place] , [place] [address] Apolinar Calvillo MD, Chief L[employer]arian [employer] CLIA: [id number] TSH 0.58 0.43-5.25 mU/L CXR Reviewed date:02/14/2025 02:50:42 PM Interpretation:Pneumonia Performing Lab: Notes/Report: Pneumonia P-Lipid Panel Reviewed date:05/02/2025 02:13:47 PM Interpretation: Performing Lab: Notes/Report: Test performed by [facility] [address] [place], [place] [address] [address] Apolinar Calvillo MD, Chief Librarian [employer] CLIA: [id number] Cholesterol 161 <200 mg/dL Triglycerides 98 <150 [...] Results: 86 Units: mg/dL % Change: +2% P-Iron Reviewed date:05/02/2025 02:13:47 PM Interpretation: Performing Lab: Notes/Report: Test performed by [facility] [address], [place] [address] Apolinar Calvillo MD, Chief Librarian [employer] CLIA: [id number] [place] 48 37-145 ug/dL P-T4 Free (thyroxine) Reviewed date:05/02/2025 02:13:47 PM Interpretation: Performing Lab: Notes/Report: Test performed by [facility] [address], [place] [address] Apolinar Calvillo MD, Chief Librarian [employer] CLIA: [id number] Thyroxine Free (free T4) 1.36 0.86-1.76 ng/dL P-Ferritin Reviewed date:05/02/2025 02:13:47 PM Interpretation: Performing Lab: Notes/Report: Test performed by [facility] [address] [place] [address] , [address], [place] [address] Apolinar Calvillo MD, Chief Librarian [employer] CLIA: [id number] Ferritin 49.6 13.0-301.0 ng/mL P-Comprehensive Metabolic Pa lito (CMP) Reviewed date:05/02/2025 02:13:47 PM Interpretation: Performing Lab: Notes/Report: Test performed by [facility] [address] , [address], [place] [address] Apolinar Calvillo MD, Chief Librarian [employer] CLIA: [id number] Sodium 134 135-145 mmol/L Potassium 5.3 3.5-5.3 [...] 0.2 <0.2-1.2 mg/dL A/G Ratio 1.2 1.1-2.5 Glycohemoglobin A1c (in hous e) Reviewed date:05/02/2025 02:13:47 PM Interpretation:5.8% Performing Lab: Notes/Report: 5.8% glycohemoglobin 5.8% 5 - 6.5 % CBC Venipuncture (in house) Reviewed date:04/19/2025 05:39:52 [...] - 38 platlet 475 100 - 400 P-TSH Reviewed date:05/02/2025 02:13:47 PM Interpretation: Performing Lab: Notes/Report: Test performed by [facility] [address] [place] [address] , [address], [place] [address] Apolinar Calvillo MD, Chief Librarian [employer] CLIA: [id number] TSH 0.76 0.43-5.25 mU/L CBC Fingerstick (in house) Reviewed date:06/13/2024 02:48:29 [...] 0.48 Performing Lab: Notes/Report: Test performed by [facility] [address] [place] [address] , [address], [place] [address] Apolinar Calvillo MD, Chief Librarian [employer] CLIA: [id number] Sodium 135 135-145 mmol/L Potassium 5.4 3.5-5.3 [...] Interpretation:Normal Performing Lab: Notes/Report: Test performed by [facility] [address] [place] [address] , [place] [address] Apolinar Calvillo MD, Chief Librarian [employer] CLIA: [id number] Ferritin 48.0 13.0-301.0 ng/mL P-T4 Free (thyroxine) Reviewed date:09/14/2024 12:50:20 PM Interpretation:Normal Performing Lab: Notes/Report: Test performed by [facility] [address] [place] [address] , [address], [place] [address] Apolinar Calvillo MD, Chief Librarian [employer] CLIA: [id number] Thyroxine Free (free T4) 1.29 0.86-1.76 ng/dL P-Iron Reviewed date:09/14/2024 12:50:20 PM Interpretation:Normal Performing Lab: Notes/Report: Test performed by [facility] [address] [place] [address] , [address], [place] [address] Apolinar Calvillo MD, Chief Librarian [employer] CLIA: [id number] Iron 82 37-145 ug/dL P-Lipid Panel Reviewed date:09/14/2024 12:50:20 PM Interpretation:trig 150, non-hdl 144 Performing Lab: Notes/Report: Test performed by [facility] [address] [place] [address] , [address], [place] [address] Apolinar Calvillo MD, Chief Librarian [employer] CLIA: [id number] Cholesterol 193 <200 mg/dL Triglycerides 150 <150 [...] Interpretation:Normal Performing Lab: Notes/Report: Test performed by [facility] [address] [place] [address] , [place] [address] Apolinar Calvillo MD, Chief Librarian [employer] CLIA: [id number] TSH 0.79 0.43-5.25 mU/L CBC Fingerstick (in house) Reviewed date:02/21/2025 03:21:47 [...] 38 plat 308 100 - 400 CBC Venipuncture (in house) Reviewed date:02/28/2025 04:54:43 [...] - 38 platlet 161 100 - 400 CBC Fingerstick (in house) Reviewed date:03/07/2025 03:00:04 [...] 11:56:12 AM Interpretation:Negative Performing Lab: Notes/Report: Negative Medications Medication SIG (Take, Route, Frequency, Duration) [...] Inhalation every 4 hrs, prn 07/08/2023 Active WALKER WITH WHEELS AND SEAT DIRECTED NEEDED R26.89R53.81 *Please review for potential replacement for e-prescription and drug interaction check* 06/03/2022 Active ProAir Digihaler 108 (90 Base) MCG/ACT 1-2 puff(s) inhaled 4 times a day as needed Active Montelukast Sodium 10 MG 1 tab(s) orally once a day; Duration: 90 days Active Primidone 50 MG 1/2 tab orally qhs; Duration: 90 days Active hydroCHLOROthiazide 12.5 MG 1 tablet in the morning Orally Once a day; Duration: 90 days 03/11/2025 Active Flonase Allergy Relief 50 MCG/ACT 1 spray(s) in each nostril once a day; Duration: 30 day(s) 08/12/2022 Active Levothyroxine Sodium 75 MCG 1 tab(s) orally once a day; Duration: 90 days Active Immunizations Vaccine Route Administration Date Status Comme nts COVID 19 Cally Unknown 11/05/2020 Administered Fluzone High Dose (65yr and older) IM Intramuscular 06/10/2017 Administered Fluzone High Dose (65yr and older) IM Intramuscular 07/29/2022 Administered pneumovax IM Intramuscular 06/20/2007 Administered Prevnar (PCV13) IM Intramuscular 02/19/2015 Administered Prevnar (PCV20) IM Intramuscular 09/13/2024 Administered xFlu shot-36 months and older IM Intramuscular 06/20/2007 Administered wXwuppga-jjehgnalh-dmqxute e pts. IM Intramuscular 05/31/2011 Administered Problems Problem Type SNOMED Code ICD Code Onset Dates Problem Status W/U Status Risk Notes Problem Gastroesophageal reflux disease (136422934) GERD (gastroesophageal reflux disease) (K21.9) Active confirmed Problem Essential hypertension (42387341) Essential hypertension (I10) Active confirmed Problem Anxiety (62431333) Anxiety (F41.9) Active confi rmed Problem Osteopenia (608251229) Osteopenia (M85.80) Active confirmed Problem Environmental allergy (796048022) Environmental allergies (Z91.09) Active confirmed Problem Impaired fasting glucose (172792321) Impaired fasting glucose (R73.01) Active confirmed Problem 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) Active confirmed Problem Mixed hyperlipidemia (786379638) Mixed hyperlipidemia (E78.2) Active confirmed Problem Chronic pain (38654946) Other chronic pain (G89.29) Active confirmed Problem Acquired hypothyroidism (235966547) Acquired hypothyroidism (E03.9) Active confirmed Problem COPD - Chronic obstructive pulmonary disease (05474451) Chronic obstructive pulmonary disease, unspecified COPD type (J44.9) Active confirmed Problem Essential tremor (857469740) Benign essential tremor (G25.0) Active confirmed Problem Chronic obstructive pulmonary disease (39175643) Chronic obstructive pulmonary disease (J44.9) Active confirmed Problem Chronic bronchitis (85601785) Chronic bronchitis, unspecified chronic bronchitis type (J42) Active confirmed Problem Chronic maxillary sinusitis (64128804) Right maxillary sinusitis (J32.0) Active confirmed Problem Current smoker (89345707) Current smoker (F17.200) Active confirmed Problem Problem with balance (668050781) Balance problems (R26.89) Active confirmed Problem Sciatic nerve lesion (270677766) Piriformis syndrome, 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) Active confirmed Problem Hyperkalemia (33584697) Serum potassium elevated (E87.5) Active confirmed Problem Occlusion and stenosis of multiple and bilateral cerebral arteries (117631738) Bilateral carotid artery stenosis (I65.23) Active confirmed Problem Seasonal allergic rhinitis (773649660) Seasonal allergic rhinitis, unspecified allergic rhinitis trigger (J30.2) Active confirmed Problem Gastroesophageal reflux disease (181171336) Gastroesophageal reflux disease, unspecified whether esophagitis present (K21.9) Active confirmed Vital Signs Heart Rate 63 /min 04/19/2025 Blood pressure diastolic 76 mm Hg 04/19/2025 Height 63 in 04/19/2025 Blood pressure systolic 124 mm Hg 04/19/2025 Weight 112 lbs 04/19/2025 BMI 19.84 kg/m2 04/19/2025 Encounters Encounter Location Date Provider Diagnosis [facility] [place] [address] [id number] 06/13/2024 Toya Johnson Right maxillary sinu sitis J32.0 and Pain in gums K06.8 [facility] [place] [address] [id number] 09/13/2024 Toya Johnson Adult general medica l examination Z00.00 ; Acquired hypothyroidism E03.9 ; Essential hypertension I10 ; Mixed hyperlipidemia E78.2 ; Chronic obstructive pulmonary disease, unspecified COPD type J44.9 ; Iron deficiency E61.1 ; Environmental allergies Z91.09 ; Impaired fasting glucose R73.01 ; Benign essential tremor G25.0 ; Polyarthralgia M25.50 ; Current smoker F17.200 ; Osteopenia M85.80 and BMI 22.0-22.9, adult Z68.22 [facility] [place] [id number] 02/08/2025 Toya Johnson Acquired hypothyroid ism E03.9 [...] M79.10 ; Polyarthralgia M25.50 and Osteopenia M85.80 [facility] [address] [facility] [address] [place], [place] [id number] 02/21/2025 Toya Crowdy Pneumonia of left lo wer lobe due to infectious organism J18.9 ; Lymphadenopathy R59.1 and BMI 20.0-20.9, adult Z68.20 [facility] [address] [place], [place] [id number] 02/28/2025 Toya Crowdy Pneumonia of left lo wer lobe due to infectious organism J18.9 and BMI 20.0-20.9, adult Z68.20 [facility] [address] [place], [place] [id number] 03/07/2025 Toya Crowdy Pneumonia of left lo wer lobe due to infectious organism J18.9 and BMI 20.0-20.9, adult Z68.20 [facility] [address] [place], [place] [id number] 04/19/2025 Toya Crowdy Acquired hypothyroid ism E03.9 ; Essential hypertension I10 ; Mixed hyperlipidemia E78.2 ; Chronic obstructive pulmonary disease, unspecified COPD type J44.9 ; Iron deficiency E61.1 ; Environmental allergies Z91.09 ; Impaired fasting glucose R73.01 ; Benign essential tremor G25.0 ; Polyarthralgia M25.50 ; Current smoker F17.200 ; Osteopenia M85.80 ; Weight loss R63.4 and Osteoporosis screening Z13.820 [facility] [address] [facility] [address] [place] [id number] 08/09/2024 Toya Crowdy [facility] [address] [facility] [address] [place] [id number] 09/04/2024 Chester Tupelo Environmental allerg ies Z91.09 [facility] [address] [facility] [address] [place] [id number] 09/07/2024 Chester Tupelo [facility] [address] [facility] [address] [place], [place] [id number] 09/14/2024 Toya Crowdy Bronchitis J40 [facility] [address] [facility] [address] [place], [place] [id number] 09/26/2024 Chester [place] Environmental allerg ies Z91.09 [facility] [address] [place], [place] [id number] 10/10/2024 Chester Tupelo Bronchitis J40 [facility] [address] [place], [place] [id number] 12/27/2024 Chester Tupelo Bronchitis J40 ; Mix ed hyperlipidemia E78.2 and Environmental allergies Z91.09 [facility] [address] [place], [place] [id number] 02/12/2025 Chester Tupelo [facility] [address] [place] [id number] 02/14/2025 Toya Johnson [facility] [address] [place], [place] [id number] 03/11/2025 Chester Tupelo Acute URI J06.9 ; Acquired hypothyroidism E03.9 and Environmental allergies Z91.09 [facility] [address] [place] [id number] 03/12/2025 Chester Tupelo [facility] [address] [place] [id number] 03/26/2025 Chester Tupelo [facility] [address] [place] [id number] 05/02/2025 Toya Johnson Assessments Encounter Date Diagnosis (ICD Code) Assessment Notes Treatment Notes Treatment Clinical Notes Section Notes 06/13/2024 Right maxillary sinusitis (ICD-10 - J32.0) [...] 02/28/2025 BMI 20.0-20.9, adult (ICD-10 - Z68.20) 03/07/2025 Pneumonia of left lower lobe due to infectious organism (ICD-10 - J18.9) WBC is still elevated. Will start on doxycycline and get a repeat CXR. 03/07/2025 BMI 20.0-20.9, adult (ICD-10 - Z68.20) 03/11/2025 Acute URI (ICD-10 - J06.9) 04/19/2025 Essential hypertension (ICD-10 - I10) 04/19/2025 Acquired hypothyroidism (ICD-10 - E03.9) 04/19/2025 Mixed hyperlipidemia (ICD-10 - E78.2) 03/11/2025 Acquired hypothyroidism (ICD-10 - E03.9) 02/21/2025 BMI 20.0-20.9, adult (ICD-10 - Z68.20) 02/08/2025 Mixed hyperlipidemia (ICD-10 - E78.2) 12/27/2024 Mixed hyperlipidemia (ICD-10 - E78.2) 09/13/2024 Essential hypertension (ICD-10 - I10) 09/13/2024 Mixed hyperlipidemia (ICD-10 - E78.2) 12/27/2024 Environmental allergies (ICD-10 - Z91.09) 03/11/2025 Environmental allergies (ICD-10 - Z91.09) 02/08/2025 Chronic obstructive pulmonary disease, unspecified COPD type (ICD-10 - J44.9) 04/19/2025 Chronic obstructive pulmonary disease, unspecified COPD type (ICD-10 - J44.9) 04/19/2025 Iron deficiency (ICD-10 - E61.1) 02/08/2025 Iron deficiency (ICD-10 - E61.1) 09/13/2024 Chronic obstructive pulmonary disease, unspecified COPD type (ICD-10 - J44.9) 09/13/2024 Iron deficiency (ICD-10 - E61.1) 02/08/2025 Environmental allergies (ICD-10 - Z91.09) 04/19/2025 Environmental allergies (ICD-10 - Z91.09) 04/19/2025 Impaired fasting glucose (ICD-10 - R73.01) 02/08/2025 Impaired fasting glucose (ICD-10 - R73.01) 09/13/2024 Environmental allergies (ICD-10 - Z91.09) 09/13/2024 Impaired fasting glucose (ICD-10 - R73.01) 02/08/2025 Benign essential tremor (ICD-10 - G25.0) 04/19/2025 Benign essential tremor (ICD-10 - G25.0) 04/19/2025 Polyarthralgia (ICD-10 - M25.50) 02/08/2025 Current smoker (ICD-10 - F17.200) 09/13/2024 Benign essential tremor (ICD-10 - G25.0) 09/13/2024 Polyarthralgia (ICD-10 - M25.50) 02/08/2025 Bronchitis (ICD-10 - J40) 04/19/2025 Current smoker (ICD-10 - F17.200) 04/19/2025 Osteopenia (ICD-10 - M85.80) 02/08/2025 Lumbar back pain (ICD-10 - M54.50) 09/13/2024 Current smoker (ICD-10 - F17.200) 09/13/2024 Osteopenia (ICD-10 - M85.80) 02/08/2025 Myalgia, unspecified site (ICD-10 - M79.10) 04/19/2025 Weight loss (ICD-10 - R63.4) Patient states she has no appetite. Will try adding Boost daily or twice a day. Will f/u in 3 months for a weight check. 04/19/2025 Osteoporosis screening (ICD-10 - Z13.820) 02/08/2025 Polyarthralgia (ICD-10 - M25.50) 09/13/2024 BMI 22.0-22.9, adult (ICD-10 - Z68.22) 02/08/2025 Osteopenia (ICD-10 - M85.80) Plan Of Treatment Pending Test Test Name Order Date DEXA Hip and Spine 04/22/2025 xLC-Glycohemoglobin (GHb),Total 09/02/19 22 H-CBC 10/09/2021 H-Sputum Culture with Gram Stain 025 P-BNP (Brain Natriuretic Peptide) 2023 Next Appt Details Provider Name:Toya juarez, 10/24/2025 09:00:00 AM, [address] [facility], [address], [place], [place], [id number], Insurance Providers Payer Name Payer Address Payer Phone Subscriber Number Group Number Insured Name Patient Relationship to Insured Coverage Start Date Coverage End Date [employer] [address] [address] [place], [place] [id number] MICHAEL DEL CASTILLO Self - patient is [...]
== END 2025-05-13 23:59 | disposition home or self-care (01) ==
LOC: RAD 09:07
PROVIDERS: PCP Physician Assistant; Visit Provider Family Medicine
DX: R93.7 Abnormal findings on diagnostic imaging of other parts of musculoskeletal system (principal); Z13.820 Encounter for screening for osteoporosis; Z78.0 Asymptomatic menopausal state
CPT/HCPCS: 77080